=== PATIENT | female | born 1965 | race Caucasian/White ===

== ENCOUNTER → 2016-05-24 | Outpatient (CLI) | payer OTHER ==
[~2016-05-24] MED LIST: ATV/1 PO; CEPH500C PO; CHOL1000 PO; CHOL100010 PO; DOCU-94 PO; FLUO40CA8 PO; GABA-112 PO; GABA1CAP PO; LEVO112T2 PO; LEVO125T4 PO; LEVO125T72 PO; LEVO137T3 PO; LEVO150T9 PO; LINA1CAP2 PO; MIRA1TAB3 PO; NF656 TD; OXYC-57 PO; OXYC1TAB3 PO; PANT40TA PO; SENN1TAB77 PO; SYN125 PO; VEGETABLE LAXATIVE PO; lunesta PO
== END | disposition home or self-care (01) ==
LOC: C.LABBFT 16:32
PROVIDERS: ATTEND Internal Medicine
DX: R35.0 Frequency of micturition (principal); E03.9 Hypothyroidism, unspecified

== ENCOUNTER 2016-06-02 11:23 | Emergency (ER) | payer OTHER ==
[~2016-06-02] VITALS: Ht 162.6 cm; Wt 60.0 kg
[~2016-06-02 11:23] MED LIST changes: -ATV/1 PO; -CEPH500C PO; -CHOL1000 PO; -CHOL100010 PO; -DOCU-94 PO; -FLUO40CA8 PO; -GABA-112 PO; -GABA1CAP PO; -LEVO112T2 PO; -LEVO125T72 PO; -LEVO137T3 PO; -LEVO150T9 PO; -LINA1CAP2 PO; -MIRA1TAB3 PO; -NF656 TD; -OXYC-57 PO; -PANT40TA PO; -SENN1TAB77 PO; -SYN125 PO; -VEGETABLE LAXATIVE PO; -lunesta PO
[2016-06-02 11:25] VITALS: TEMP 36.6; Ht 162.6 cm; Wt 60.0 kg
[2016-06-02 12:01] LABS: URINE APPEARANCE CLEAR (CLEAR); URINE BILIRUBIN NEG (NEG); URINE COLOR YELLOW; URINE NITRITE NEG (NEG); URINE SPECIFIC GRAVITY 1.021 (1.000-1.030); UROBILINOGEN NEG (NEG); ZZUR CULT IF INDIC CLEAN CATCH NO
[2016-06-02 12:03] LABS: MANUAL MICROSCOPIC REQUIRED? NO; REVIEW REQ? NO
[2016-06-02 13:00] LABS: HEMATOCRIT 36.6 % (37-47); MEAN CELL VOLUME 89.3 fL (80-100); MEAN CORPUSCULAR HEMOGLOBIN 30.2 pg (25-34); MEAN CORPUSCULAR HGB CONC 33.9 g/dl (32-36); MEAN PLATELET VOLUME 10.1 fL (7.4-10.4); PLATELET COUNT 322 K/uL (130-400); WHITE BLOOD COUNT 7.11 K/uL (4.8-10.8)
[2016-06-02] MEDS ORDERED: MoRPHine SULFATE 10 MG/ML CARP/VIAL IV STA ×2 (13:00→15:08)
[2016-06-02] MEDS ORDERED: SODIUM CHLORIDE 0.9% 1000ML 1,000 ML IV STA (13:00)
[2016-06-02] MEDS ORDERED: ONDANSETRON INJ 2 MG/ML 2 ML VIAL IV STA (13:00)
[2016-06-02 13:20] LABS: CALCIUM 9.7 mg/dl (8.5-10.1); CARBON DIOXIDE 27 mmol/L (21-32); CHLORIDE 105 mmol/L (98-107); GLUCOSE 108 mg/dl (70-99); POTASSIUM 3.6 mmol/L (3.5-5.1); SODIUM 140 mmol/L (136-145)
[2016-06-02 13:24] LABS: BASO % 0.7 %; BASO ABS # 0.05 K/uL (0-0.2); COMPLETE YES; EOS % 0.9 %; IG% 0.1 %; LYMPH % 21.6 %; LYMPH ABS # 1.61 K/uL (1.2-3.4); MONO % 6.7 %
[2016-06-02 13:31] LABS: ALKALINE PHOSPHATASE 60 U/L (45-117); ALT/SGPT 22 U/L (12-78); AST/SGOT 18 U/L (15-37); BLOOD UREA NITROGEN 16 mg/dl (7-18); BUN/CREATININE RATIO 17.1 (10-20); CREATININE 0.94 mg/dl (0.60-1.20)
--- NOTE | 2016-06-02 13:57 | DIAGNOSTIC IMAGING REPORT ---
CT SCAN OF THE ABDOMEN AND PELVIS WITHOUT IV CONTRAST CLINICAL HISTORY: Flank pain and hematuria. COMPARISON STUDY: Abdominal radiographs dated 03/03/2010. TECHNIQUE: CT scan of the abdomen and pelvis is performed from the lung bases to the proximal femora. Images are reviewed in the axial, sagittal, and coronal planes. IV contrast was not administered for this examination as per the referring clinician. Automated dose control exposure was utilized. CT DOSE: 348.46 mGy.cm FINDINGS: Lung bases: The heart is normal in size and without pericardial effusion. There are small bilateral fat-containing Bochdalek hernias. The lung bases are otherwise clear. Liver: The unenhanced liver is normal in size, contour, and attenuation. There is no intrahepatic biliary ductal dilatation. Gallbladder: Unremarkable. Spleen: Normal in size and attenuation. Pancreas: Unremarkable. Adrenal glands: Unremarkable. Kidneys: The unenhanced kidneys are normal in size and without hydronephrosis. There are no renal calculi identified. There is no evidence of contour deforming renal mass lesion. Abdominal vasculature: The abdominal aorta is normal in course and caliber. Bowel: The small bowel and colon are normal in course and caliber. The appendix is not identified and reported surgically absent. Peritoneum: There is no intraperitoneal free air or abdominal ascites. Lymphadenopathy: None. Pelvic viscera: The bladder is normal as visualized. The uterus is surgically absent. No adnexal lesion is seen. Skeletal structures: No lytic or blastic lesions are seen. IMPRESSION: There are no acute infectious or inflammatory findings in the abdomen or pelvis. Electronically signed by: Javier Anderson M.D. 06/02/2016 1:55 PM Dictated Date/Time: 06/02/2016 1:52 PM
[2016-06-02 15:24] VITALS: BP 128/71; PULSE 80; O2SAT 99
[2016-06-02] MEDS ORDERED: OXYC-57 PO (15:37)
--- NOTE | 2016-06-03 10:24 | EMERGENCY ROOM VISIT NOTE ---
ED Visit Note First contact with patient: 12:52 Chief Complaint: Left flank pain. History of Present Illness: Ms. Hogue is a 50-year-old white female who ambulates into the ED complaining of left flank pain, bladder pressure and nausea. Historically patient reports she previous lumbar disc disease and had surgery in 2005. She goes on to report that she has been having ongoing hematuria, bilateral flank pain and urinary tract infections for the last 3-4 months. She has been on multiple doses of antibiotics and with reviewing her records she has been prescribed OxyIR 3 times in the last 3 months. She reports she has seen her back specialist and pain management and they do not feel her pain and urinary symptoms are related to her previous back surgery or any new back problems. She does have a upcoming appointment on June 14 with urology. Patient currently reports she had an acute onset of left flank pain that started approximately 12 hours before she arrived in the emergency department. She describes her pain as a sharp sensation. She rates her discomfort 10/10. She reports the pain radiates through the abdomen and into the right lower quadrant. She reports palpation, movement, lying down all increases her discomfort. She has minimal discomfort when she is standing and walking around. She reports she's been using [id number] medications she has used all her narcotics for pain and has had no relief. Associated with her pain she reports she's been having chills, nausea but no vomiting and a sensation of pressure over top of her bladder. She denies sweats, denisa fevers, skin eruptions, skin color changes, recent trauma, upper respiratory tract symptoms, cough, wheezing, shortness of breath, chest pain, palpitations, neck and lumbar back pain, urinary symptoms, hematuria , diarrhea, constipation, bloody stools, black/tarry stools, vaginal bleeding, vaginal discharge, bowel and bladder dysfunction, genital/rectal paresthesias, lower extremity weakness/numbness/tingling. Review of Systems: As noted above in history of present illness. All body systems were reviewed and found to be negative as noted above. Past Medical History: As previously noted, hypothyroidism. Current Medications: Levothyroxine, Prozac. Allergies to Medications: Hydrocodone. Social History: Patient is currently employed; she feels safe in her home environment; she denies tobacco use and admits to alcohol use. Physical Examination: Vital Signs: Date Time Temp Pulse Resp B/P Pulse Ox O2 Delivery O2 Flow Rate FiO2 06/02/16 15:24 80 16 128/71 99 Room Air 06/02/16 14:01 75 18 109/65 98 Room Air 06/02/16 13:31 88 20 124/94 96 Room Air 06/02/16 11:25 36.6 107 18 106/57 100 Room Air GENERAL: 50-year-old female in moderate distress due to pain, nontoxic-appearing , afebrile and hemodynamically stable. NEUROLOGICAL: Awake, alert and oriented to person, place and time. Answering questions appropriately and following commands. Normal gait. Good hand eye coordination. No focal motor sensory deficits. SKIN: Warm, dry and pink. No soft tissue eruptions or trauma noted. HEENT: Atraumatic and normocephalic. PERRL. Sclera white and conjunctiva pink. No drainage from naris. Oral cavity moist and pink. Pharynx is nonerythematous or edematous. Speech normal. No lymphadenopathy. Trachea midline. No jugular venous distention. BACK: No tenderness over the bony cervical, thoracic and lumbar spine. No tenderness throughout the paraspinous muscles and there is no palpable spasm. Positive bilateral CVA tenderness; more pronounced on the left than the right. Negative straight leg raise test. THORAX: Lungs sounds are clear to auscultation and equal bilaterally with symmetrical chest wall. No wheezing, rales or rhonchi. No crepitus, tenderness , subcutaneous air or deformities noted. HEART: Regular rate and rhythm. No gallops, rubs or murmurs are appreciated. ABDOMEN: Flat, soft and nontender. Positive bowel sounds in all quadrants. No guarding, rigidity or organomegaly. EXTREMITIES: Moves all extremities well on command and with purpose. All distal neurovascular statuses are intact and equal bilaterally. ED Course: Patient is assessed as noted above. Laboratory Testing: Test 06/02/16 11:45 06/02/16 12:40 Range/Units Urine Color YELLOW Urine Appearance CLEAR CLEAR Urine pH 5.0 4.5-7.5 Urine Specific [place] 1.021 1.000-1.030 Urine Protein NEG NEG Urine Glucose (UA) NEG NEG Urine Ketones TRACE NEG Urine Occult Blood NEG NEG Urine Nitrite NEG NEG Urine Bilirubin NEG NEG Urine Urobilinogen NEG NEG Urine Leukocyte Esterase NEG NEG Urine WBC (Auto) 1-5 0-5 /hpf Urine RBC (Auto) 0-4 0-4 /hpf Urine Hyaline Casts (Auto) 1-5 0-5 /lpf Urine Epithelial Cells (Auto) 10-20 0-5 /lpf Urine Bacteria (Auto) NEG NEG White Blood Count 7.11 4.8-10.8 K/uL Red Blood Count 4.10 4.2-5.4 M/uL Hemoglobin 12.4 12.0-16.0 g/dL Hematocrit 36.6 37-47 % Mean Corpuscular Volume 89.3 80-100 fL Mean Corpuscular Hemoglobin 30.2 25-34 pg Mean Corpuscular Hemoglobin Concent 33.9 32-36 g/dl Platelet Count 322 130-400 K/uL Mean Platelet Volume 10.1 7.4-10.4 fL Neutrophils (%) (Auto) 70.0 % Lymphocytes (%) (Auto) 21.6 % Monocytes (%) (Auto) 6.7 % Eosinophils (%) (Auto) 0.9 % Basophils (%) (Auto) 0.7 % Neutrophils # (Auto) 5.23 1.4-6.5 K/uL Lymphocytes # (Auto) 1.61 1.2-3.4 K/uL Monocytes # (Auto) 0.50 0.11-0.59 K/uL Eosinophils # (Auto) 0.07 0-0.5 K/uL Basophils # (Auto) 0.05 0-0.2 K/uL RDW Standard Deviation 40.1 36.4-46.3 fL RDW Coefficient of Variation 12.4 11.5-14.5 % Immature Granulocyte % (Auto) 0.1 % Immature Granulocyte # (Auto) 0.01 0.00-0.02 K/uL Nucleated RBC Absolute Count (auto) 0.00 0-0 K/uL Nucleated Red Blood Cells % 0.0 % Sodium Level 140 136-145 mmol/L Potassium Level 3.6 3.5-5.1 mmol/L Chloride Level 105 98-107 mmol/L Carbon Dioxide Level 27 21-32 mmol/L Anion Gap 8.0 3-11 mmol/L Blood Urea Nitrogen 16 7-18 mg/dl Creatinine 0.94 0.60-1.20 mg/dl Est Creatinine Clear Calc Drug Dose 60.5 ml/min Estimated GFR () 80.8 Estimated GFR (Non- 69.8 BUN/Creatinine Ratio 17.1 10-20 Random Glucose 108 70-99 mg/dl Calcium Level 9.7 8.5-10.1 mg/dl Total Bilirubin 0.3 0.2-1 mg/dl Direct Bilirubin < 0.1 0-0.2 mg/dl Aspartate Amino Transf (AST/SGOT) 18 15-37 U/L Alanine Aminotransferase (ALT/SGPT) 22 12-78 U/L Alkaline Phosphatase 60 45-117 U/L Total Protein 7.5 6.4-8.2 gm/dl Albumin 4.2 3.4-5.0 gm/dl Lipase 158 73-393 U/L Noncontrast Abdominal/Pelvic CT: Was read by myself and the radiologist showing no acute inflammatory or infectious changes in the abdomen and pelvis, kidneys are of normal size and without hydronephrosis, no renal calculi identified and no evidence of contour deforming renal masses. No skeletal lytic or blastic lesions seen. Patient was hydrated with normal saline, she received a total of 16 mg of morphine IV for pain and 4 mg of Zofran. Patient is assessed multiple times during her stay in the emergency department. Patient's case was reviewed with Dr. Arellano; we agreed on diagnostic approach, treatment, disposition and plan. Patient's case was consulted with case management and Dr. Jasso, hospitalist for possible observation stay for irretractable pain. Dr. Jasso did not think that an observation stay would be beneficial at this time. Patient was educated about tonight's findings and instructed on her treatment plan; she verbalizes understanding and agreement with this plan. Clinical Impression: Left flank pain. Decision-Making: Initially my differential diagnosis I considered musculoskeletal disorder, kidney stone, pyelonephritis, splenomegaly, bowel obstruction, diverticulitis and other causes. Disposition: Patient discharged home in stable condition accompanied by friends ; prior to departure she was reassessed and subjectively reported she was feeling slightly better and rated her discomfort 5/10. Plan: Patient was given a short prescription of Percocet; for 3 days, and encouraged to alternate it with ibuprofen and acetaminophen as needed. Patient was encouraged to follow-up with her family physician tomorrow morning and request follow-up care and treatment. Patient was encouraged to keep her upcoming urology appointment. Patient was encouraged return ED for worsening/uncontrolled pain, fevers, genital/rectal numbness/tingling, lower extremity weakness/numbness/tingling, bowel and bladder dysfunction or any new/concerning symptoms
[2016-06-23] MEDS ORDERED: LEVO150T9 PO (13:31)
[2016-06-23] MEDS ORDERED: VEGETABLE LAXATIVE PO (13:31)
[2016-07-20] MEDS ORDERED: LEVO137T3 PO (05:57)
[2016-07-20] MEDS ORDERED: FLUO40CA8 PO (08:26)
[2016-07-20] MEDS ORDERED: CHOL100010 PO (13:31)
[2017-01-25] MEDS ORDERED: ATV/1 PO (11:56)
[2017-01-25] MEDS ORDERED: MIRA1TAB3 PO (11:56)
[2017-01-25] MEDS ORDERED: OXYC-57 PO (11:56)
== END 2016-06-02 16:07 | disposition home or self-care (01) ==
LOC: C.EDB 11:24
DX: R10.30 Lower abdominal pain, unspecified (principal); E03.9 Hypothyroidism, unspecified; Z79.899 Other long term (current) drug therapy; Z88.5 Allergy status to narcotic agent

== ENCOUNTER 2016-06-05 17:08 | Emergency (ER) | payer OTHER ==
[~2016-06-05] VITALS: Ht 162.6 cm; Wt 61.0 kg
[~2016-06-05 17:08] MED LIST changes: +OXYC-57 PO; -OXYC1TAB3 PO
[2016-06-05 17:16] VITALS: TEMP 36.7; Ht 162.6 cm; Wt 61.0 kg
[2016-06-05] MEDS ORDERED: MoRPHine SULFATE 10 MG/ML CARP/VIAL IM STA (17:34)
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
[2016-06-05] MEDS ORDERED: LEVO125T72 PO (17:56)
[2016-06-05 18:13] VITALS: BP 121/77; PULSE 82; O2SAT 100
[2016-06-23] MEDS ORDERED: LEVO150T9 PO (13:31)
[2016-06-23] MEDS ORDERED: VEGETABLE LAXATIVE PO (13:31)
[2016-07-20] MEDS ORDERED: LEVO137T3 PO (05:57)
[2016-07-20] MEDS ORDERED: FLUO40CA8 PO (08:26)
[2016-07-20] MEDS ORDERED: CHOL100010 PO (13:31)
[2017-01-25] MEDS ORDERED: MIRA1TAB3 PO (11:56)
[2017-01-25] MEDS ORDERED: ATV/1 PO (11:56)
[2017-01-25] MEDS ORDERED: OXYC-57 PO (11:56)
== END 2016-06-05 18:07 | disposition home or self-care (01) ==
LOC: C.EDB 17:08 → C.EDD 18:07
DX: T22.211A Burn of second degree of right forearm, initial encounter (principal); X10.2XXA Contact with fats and cooking oils, initial encounter; Y93.G3 Activity, cooking and baking

== ENCOUNTER 2016-07-04 05:25 | Observation (INO) | payer OTHER ==
[2016-06-22 12:12] LABS: BASO % 1.7 %; BASO ABS # 0.08 K/uL (0-0.2); COMPLETE YES; EOS % 3.2 %; HEMATOCRIT 36.1 % (37-47); IG% 0.2 %; LYMPH ABS # 1.73 K/uL (1.2-3.4); MEAN CELL VOLUME 91.6 fL (80-100); MEAN CORPUSCULAR HEMOGLOBIN 30.2 pg (25-34); MEAN PLATELET VOLUME 10.2 fL (7.4-10.4); MONO % 7.7 %; NEUT % 50.2 %; PLATELET COUNT 317 K/uL (130-400); RED BLOOD COUNT 3.94 M/uL (4.2-5.4); WHITE BLOOD COUNT 4.68 K/uL (4.8-10.8)
[2016-06-22 12:20] LABS: PROTHROMBIN TIME (PATIENT) 10.9 SECONDS (9.0-12.0)
[2016-06-22 12:25] LABS: BLOOD UREA NITROGEN 13 mg/dl (7-18); CALCIUM 8.9 mg/dl (8.5-10.1); CARBON DIOXIDE 30 mmol/L (21-32); CHLORIDE 105 mmol/L (98-107); GLUCOSE 84 mg/dl (70-99); SODIUM 143 mmol/L (136-145)
[2016-06-22 12:27] LABS: URINE APPEARANCE CLEAR (CLEAR); URINE BILIRUBIN NEG (NEG); URINE COLOR YELLOW; URINE NITRITE NEG (NEG); URINE SPECIFIC GRAVITY 1.017 (1.000-1.030); UROBILINOGEN NEG (NEG)
[2016-06-22 12:30] LABS: MANUAL MICROSCOPIC REQUIRED? NO; REVIEW REQ? NO
[2016-06-23 13:19] VITALS: BMI 24.0
--- NOTE | 2016-07-03 21:52 | HISTORY & PHYSICAL EXAMINATION ---
DATE OF ADMISSION: 07/04/2016 She is being preoped for surgery tomorrow at [place], [place] for anterior cervical discectomy and fusion C5-C6 and C6-C7 with iliac crest bone graft. She has assortment of neck pain, arm pain, weakness, trapezius pain worsening over time, degenerative changes, failure of conservative measures and she has consented for surgery. She has failed conservative other measures including physical therapy and chiropractic medication. PAST MEDICAL HISTORY: Positive for acid reflux. No COPD, diabetes mellitus, carcinoma or hypertension. ALLERGIES: Negative. SOCIAL HISTORY: Nonsmoker. No alcohol use. PAST SURGICAL HISTORY: Tonsils, appendectomy, endometriosis, partial hysterectomy, lumbar spine surgery. ALLERGIES: Negative. MEDICATIONS: Synthroid, Prozac and anti-inflammatory agents. REVIEW OF SYSTEMS: She denies blurred vision, double vision, tinnitus, vertigo. Denies chest pain, palpitations. Asthma or wheezing negative. Nausea or vomiting negative. No urgency, frequency or dysuria. The only complaint is musculoskeletal, neurologic with neck pain, arm pain and weakness. PHYSICAL EXAMINATION: GENERAL: She is alert, oriented and pleasant young lady. VITAL SIGNS: Blood pressure 130/80, pulse of 80, respiratory rate 16. CARDIAC: Normal S1, S2. No S3. LUNGS: Clear to auscultation. ABDOMEN: Soft, nontender. Bowel sounds are intact. She has a Spurling's maneuver with rotation and side bending. She has some weakness of hemodialysis rn strength, weakness of triceps function and decreased triceps reflex. MRI reviewed demonstrating disc osteophyte complex particularly C6-C7, lesser degree at C5-C6. IMPRESSION: Cord compression, cervical spine C6-C7 and C5-C6. DISPOSITION: Includes an anterior cervical discectomy and fusion; C5-C6 and C6-C7 cervical spine with iliac crest bone graft. [facility]
[2016-07-04] VITALS (15 sets, daily range): BP systolic 107–143; BP diastolic 44–84; PULSE 74–95; TEMP 36.4–36.8; O2SAT 98–100; Ht 162.6 cm; Wt 59.0 kg
[~2016-07-04] VITALS: Ht 162.6 cm; Wt 59.0 kg
[~2016-07-04 05:25] MED LIST changes: -LEVO125T4 PO; +LEVO150T9 PO; -OXYC-57 PO; +VEGETABLE LAXATIVE PO
[2016-07-04] MEDS ORDERED: lunesta PO (05:57)
[2016-07-04] MEDS ORDERED: CEFAZOLIN 2000 MG/60 ML D5W 60 ML IV SCH (06:00)
[2016-07-04] MEDS ORDERED: NSS 1000ML IV SCH (06:00)
[2016-07-04] MEDS ORDERED: LACTATED RINGER'S 1000ML 1,000 ML IV SCH (06:00)
[2016-07-04] MEDS ORDERED: PROPOFOL IV EMULSION 10 MG/ML 20 ML VIAL IV ONE (06:32)
[2016-07-04] MEDS ORDERED: FENTANYL CITRATE INJ 50 MCG/1 ML 2 ML VIAL ONE ×2 (06:32→08:17)
[2016-07-04] MEDS ORDERED: ONDANSETRON INJ 2 MG/ML 2 ML VIAL ONE (06:32)
[2016-07-04] MEDS ORDERED: GLYCOPYRROLATE INJ 0.2 MG/ML VIAL ONE (06:32)
[2016-07-04] MEDS ORDERED: LIDOCAINE HCL 2% 2 ML VIAL (20MG/ML) ONE (06:32)
[2016-07-04] MEDS ORDERED: NEOSTIGMINE METHYLSULFATE 5 MG/5 ML SYR ONE (06:32)
[2016-07-04] MEDS ORDERED: LARYING-O-JET KIT (LTA) EXT ONE ×2 (06:32)
[2016-07-04] MEDS ORDERED: MIDAZOLAM HCL 1 MG/ML 2ML VIAL ONE (06:32)
[2016-07-04] MEDS ORDERED: DEXAMETHASONE SOD INJ 4 MG/ML VIAL ONE (06:32)
[2016-07-04] MEDS ORDERED: ROCURONIUM BROMIDE 10 MG/ML 5 ML VIAL ONE (06:32)
[2016-07-04] MEDS ORDERED: GELATIN SPONGE SZ 100 ONE (07:02)
[2016-07-04] MEDS ORDERED: THROMBIN FOR SOLN 20000 UNIT KIT ONE (07:02)
[2016-07-04] MEDS ORDERED: BUPIVACAINE/EPINEPHRINE 0.5% MPF 1:200,000 30 ML VIAL ONE (07:02)
[2016-07-04] MEDS ORDERED: BACITRACIN 50000 UNIT VIAL ONE (07:02)
[2016-07-04] MEDS ORDERED: EpHEDrine SULFATE INJ 50 MG/ML AMP IV PRN (07:15)
[2016-07-04] MEDS ORDERED: ATROPINE SULFATE 0.1 MG/ML 5ML SYR IV PRN (07:15)
[2016-07-04] MEDS ORDERED: ONDANSETRON INJ 2 MG/ML 2 ML VIAL IV PRN ×2 (07:15→10:00)
[2016-07-04] MEDS ORDERED: PHENYLEPHRINE 100MCG/ML 5ML SYR IV PRN (07:15)
--- NOTE | 2016-07-04 07:19 | History & Physical Bridge Note ---
H&P Re-Evaluation Bridge Note: I have examined the patient, reviewed the History & Physical and in the interval since the performance of the History & Physical I have noted the following changes of clinical significance: No changes noted
[2016-07-04] MEDS ORDERED: EpHEDrine SULFATE 50MG/5ML SYR ONE (07:53)
--- NOTE | 2016-07-04 09:35 | DIAGNOSTIC IMAGING REPORT ---
Cervical spine CERVICAL 2 OR 3 VIEWS CLINICAL HISTORY: C5-C7 ACDF fusion TECHNIQUE: Image intensifier COMPARISON STUDY: None FINDINGS: Findings consistent anterior cervical fusion. Images are utilized for intraoperative localization purposes. IMPRESSION: Cervical fusion image intensifier images Electronically signed by: Valentin Huntley M.D. 07/04/2016 9:34 AM Dictated Date/Time: 07/04/2016 9:33 AM
--- NOTE | 2016-07-04 09:57 | [facility] Post Operative Brief Note ---
Immediate Operative Summary Operative Date Jul 04, 2016. Pre-Operative Diagnosis Cord compression, cervical spine C6-C7 and C5-C6 Post-Operative Diagnosis Cord compression, cervical spine C6-C7 and C5-C6 Procedure(s) Performed C5-C7 Anterior Cervical Discectomy and Fusion with iliac crest graft Surgeon Dr. Adkins Cable Testers Helper Surgeon(s) MK Grigsby Estimated Blood Loss 15ml Findings cord compression Specimens none per surgeon Complication(s) None Disposition Recovery Room / PACU
[2016-07-04] MEDS ORDERED: DEXAMETHASONE INJ 8 MG in SYRINGE 0 ML IV PRN (10:00)
[2016-07-04] MEDS ORDERED: HYDROmorphone INJ 0.5 MG/0.5 ML SYR IV PRN (10:00)
[2016-07-04] MEDS ORDERED: MAGNESIUM HYDROXIDE SUSP 30 ML UDC PO PRN (10:00)
[2016-07-04] MEDS ORDERED: LORAZEPAM INJ 0.5 MG in SYRINGE 0.75 ML IV PRN (10:00)
[2016-07-04] MEDS ORDERED: RACEPINEPHRINE 2.25% NEBU SOLN 0.5 ML VIAL INH PRN (10:00)
[2016-07-04] MEDS ORDERED: ACETAMINOPHEN IV 100 ML IV PRN (10:00)
[2016-07-04] MEDS ORDERED: NALOXONE HCL 0.4 MG/1 ML VIAL/CARP IV PRN (10:00)
[2016-07-04] MEDS ORDERED: HYDROmorphone INJ 1 MG/ML SYR ONE ×2 (10:06→12:41)
[2016-07-04] MEDS: HYDROmorphone INJ 2 MG/ML SYR/VIAL IV PRN ×4 (10:10→10:45)
[2016-07-04] MEDS ORDERED: IV FLUIDS COMPLETED PRN (10:30)
[2016-07-04] MEDS: SODIUM CHLORIDE 0.9% 1000ML 1,000 ML IV SCH ×2 (11:30→22:20)
--- NOTE | 2016-07-04 12:38 | Anesthesiology Progress Note ---
Anesthesia Post Op Note Date & Time Jul 04, 2016 at 12:39 Vital Signs Pain Intensity: 6.0 Vital Signs Past 12 Hours Date Time Temp Pulse Resp B/P Pulse Ox O2 Delivery O2 Flow Rate FiO2 07/04/16 12:00 36.6 81 14 111/61 99 Humidified Oxygen 2.0 07/04/16 11:09 36.8 86 18 112/62 99 Nasal Cannula 2 07/04/16 11:04 76 22 07/04/16 11:04 87 22 98 07/04/16 11:03 116/51 07/04/16 10:59 86 18 99 07/04/16 10:59 85 18 07/04/16 10:58 120/67 07/04/16 10:54 82 19 99 07/04/16 10:54 82 19 07/04/16 10:53 116/63 07/04/16 10:49 85 16 99 07/04/16 10:49 84 16 07/04/16 10:48 117/70 07/04/16 10:44 79 17 07/04/16 10:44 79 17 99 07/04/16 10:43 118/64 07/04/16 10:39 80 19 98 07/04/16 10:39 81 19 07/04/16 10:38 125/66 07/04/16 10:35 79 19 98 07/04/16 10:35 79 19 07/04/16 10:33 131/67 07/04/16 10:30 80 16 07/04/16 10:30 80 16 98 07/04/16 10:28 128/68 07/04/16 10:25 80 19 99 07/04/16 10:25 80 19 07/04/16 10:23 126/69 07/04/16 10:20 81 20 99 07/04/16 10:20 81 20 07/04/16 10:19 85 13 07/04/16 10:19 85 13 99 07/04/16 10:18 124/70 07/04/16 10:14 80 14 98 07/04/16 10:14 80 14 07/04/16 10:13 128/70 07/04/16 10:09 84 13 07/04/16 10:09 84 13 135/45 100 07/04/16 10:04 85 18 100 07/04/16 10:04 86 18 07/04/16 10:03 133/65 07/04/16 09:59 90 23 100 07/04/16 09:59 89 23 07/04/16 09:58 138/76 07/04/16 09:54 95 18 07/04/16 09:54 36.1 105 16 93/58 99 Mask 10 07/04/16 09:54 95 18 100 07/04/16 06:01 36.7 77 18 107/44 99 Room Air Notes Mental Status: alert / awake / arousable, participated in evaluation Pt Amnestic to Procedure: Yes Nausea / Vomiting: adequately controlled Pain: adequately controlled Airway Patency, RR, SpO2: stable & adequate BP & HR: stable & adequate Hydration State: stable & adequate Anesthetic Complications: no major complications apparent
[2016-07-04] MEDS: CEFAZOLIN IV 1,000 MG in DEXTROSE 5% 50ML 50 ML IV SCH ×2 (16:10→23:24)
[2016-07-04] MEDS: DEXAMETHASONE INJ 6 MG in SYRINGE 0 ML IV SCH ×2 (16:10→23:24)
--- NOTE | 2016-07-04 18:08 | OPERATIVE REPORT ---
DATE OF OPERATION: 07/04/2016 PREOPERATIVE DIAGNOSES: Cervical spondylosis and nerve root entrapment, cord compression C5-C6, C6-C7 cervical. POSTOPERATIVE DIAGNOSES: Same. PROCEDURE: 1. Anterior cervical discectomy and fusion C5-C6 and C6-C7. 2. Left anterior iliac crest structural autograft. SURGEON: Bry Adkins DO VP TALENT MANAGEMENT: Yemi Benito PA-C COMPLICATIONS: Zero. BLOOD LOSS: 15 mL. DESCRIPTION OF PROCEDURE: The patient was taken to the main operating room, room 3, placed up on the surgical frame, traction placed on the cervical spine, Kennedy catheter administered, antibiotics administered. She was prepped and draped sterile for anterior approach. We prepped crest and cervical spine. We made a transverse skin incision over the C6 vertebral body dissecting the soft tissue in the same plane. This is a classic Chun-Live approach. We did a formal discectomy at C5-C6 and C6-C7. The cervical spine went back through the posterior longitudinal ligament, we were left to right to the uncovertebral joints. We did a nice dissection and every visible aspect of the disc was removed, foraminotomies opened as well. We irrigated thoroughly. We went to the iliac crest. I was able to get a skin incision, fascial incision, harvested 2 structural autograft. These were placed into the discectomy site at C5-C6. They were roughly 6-7 mm in anterior height, approximately 14 mm in length approximately 13 mm across. The fit was anatomic. We then took a small plate, it was 26 mm in length by the [place]. This was placed on the anterior structures, anterior aspect. Six screws were used to transfix this in anatomic position, presybeterian of lordosis. We irrigated and closed both wounds, sterile dressings applied, the patient returned to PACU stable. There were no apparent complications. Sponge and needle count correct. Implants used were by the [place]. I attest to the content of the Intraoperative Record and any orders documented therein. Any exceptions are noted below. RHINA
[2016-07-04] MEDS ORDERED: NURSING VERBAL MED ORDER ONE (18:30)
[2016-07-04] MEDS ORDERED: METOCLOPRAMIDE HCL 10 MG TAB PO PRN (19:00)
[2016-07-04] MEDS: HYDROmorphone INJ 1 MG/ML SYR IV PRN (20:33)
[2016-07-04] MEDS: DOCUSATE SODIUM 100 MG CAP PO SCH (20:34)
[2016-07-05] VITALS (11 sets, daily range): BP systolic 107–135; BP diastolic 66–79; PULSE 76–91; TEMP 36.7–36.9; O2SAT 97–100
[2016-07-05] MEDS: HYDROmorphone INJ 1 MG/ML SYR IV PRN ×2 (00:58→06:31)
[2016-07-05] MEDS ORDERED: LEVOTHYROXINE 137 MCG TAB PO SCH (06:00)
--- NOTE | 2016-07-05 07:23 | Discharge Instructions ---
Discharge Instructions Admission Reason for Admission: Cervical Disc Displacement Discharge Discharge Diagnosis / Problem: neck surgery Discharge Goals Goal(s): Improve function Activity Recommendations Activity Limitations: as noted below Lifting Limitations: no more than 5 pounds Exercise/Sports Limitations: until after follow-up appointment May Resume Sexual Activity: after follow-up appointment Shower/Bathe: keep incision dry Driving or Machine Use: . Instructions / Follow-Up Instructions / Follow-Up MEDICATIONS: Please take your prescriptions as instructed at your pre-op appointment. SPECIAL CARE: The following information is intended to answer some of the common questions and concerns regarding your surgery. Each patient is an individual and receives individual counselling throughout the course of treatment, from diagnosis to surgery all the way through recovery. What follows is not an exhaustive list, but should be a useful guide to some of the common questions and concerns patients have regarding their surgeries. These are not provided to keep you from calling us; rather, they give you something accurate and concrete to reference as you recover from your procedure. If you need us, we are available to you. As always, if you are not sure about something, call us at [phone]. MEDICAL EMERGENCIES: For these conditions, call 911 or go to your local hospital-based Emergency Department - not [facility] or equivalent. * Paralysis * Severe chest pain or difficulty breathing * Swelling or redness of either leg Spine procedures can be rather complex and though complications are rare, they do occur. In such cases, effective advice regarding emergency situations cannot always be addressed over the telephone. You may be referred to the emergency department for more effective management of your problem. Activity Limitations: It is important to give your body time to heal, so please limit your activities : * In general, don't do anything that moves your spine too much. You should avoid contact sports, twisting or heavy lifting while you recover. * 5-10 pounds is all you should attempt to lift. * You should not plan on driving for approximately 3 weeks and you should avoid traveling more than 30-45 minutes at a time. Longer trips should be broken down with walking breaks spaced appropriately. * Physical therapy is not usually required. * Walking and good posture practices will help you recover and regain your function. * Avoid straining or sudden changes in position. * In general, the goal is to take it easy and recover. Don't cause any new problems. Just relax. Showers: * Do not take a bath, use a Jacuzzi or hot tub or otherwise submerge your incision. * It is usually safe to take a shower 4-5 days after your surgery. * Your incision does not require any special creams or ointments. * Simply clean it with soap and water, dry and re-dress with a clean bandage afterwards. Incision: * Keep incision clean, dry and protected until your first follow-up appointment. * Some amount of drainage and redness is normal. Any drainage should be fairly clear and not have a foul odor. * If you feel anything is wrong or you have excessive drainage, please call us. * Your stitches and akilah will be removed 10-14 days after your surgery. At the time of your first post-op visit. * Neck surgeries are typically closed with a suture underneath the skin. The steri-strips over the incision should be maintained until we see you in the office. Bracing: * You may be provided with a back or neck brace to encourage good posture and prevent injury. It will remind you not to do too much as you heal and will alert others to the fact that you have had a surgery. * Back braces may be removed for showers and when you are resting at home. They must be worn when you are walking around for any period of time or for travel. * For neck surgery, you will likely be provided with two cervical collars. The soft collar ([place] or foam rubber) is worn most commonly throughout the day and while sleeping. The plastic collar (provided at the hospital) is for showering/bathing. * Except while eating, collars should remain in place. More specifically, bracing is provided for a purpose and should be worn. * Please obtain your brace or collars prior to your operation and bring them to the hospital with you on the day of surgery. * You should also bring your collars to your post-op appointment with Dr. Adkins. You should always take good care of your body and practice healthy habits, especially following surgery. You should: * Follow your doctor's treatment plan * Sit and stand properly with good posture (ears over shoulders, shoulders over hips) Don't slouch * Learn to lift correctly * Exercise regularly (low-impact aerobic exercise is especially good, but check with your doctor first) * Generally, be up and walking for 5-10 minutes at a time at least 3-4 times per day from the day you get home * Increasing walking to tolerance until you can walk for 20-30 minutes at a time * Attain and maintain a healthy body weight * Eat healthy foods ( a well-balanced, low-fat diet rich in fruits and vegetables) and get enough calcium * Avoid excessive use of alcohol When to call our office - If you notice any of the following: * Increased pain not relieve by pain medicine * Fevers greater then 100 degrees F, chills or flu symptoms * Increased redness around incision * Drainage from the incision that is not clear * Any foul smelling drainage * Swelling or fluid collection beneath the skin Miscellaneous: * In the hospital, you may be given a walker or cane for support while walking. These are temporary needs and are intended to prevent injuries due to falls. You may discontinue them when you feel strong and steady enough on your feet. * Sleep in a comfortable position. We find that many patients find a lounge chair or recliner with several pillows to be beneficial in the early post-operative period. * The support stockings should be used for 7-10 days and may be discontinued when you are back to walking more and conducting usual household activities. No problem is insignificant. We are here to help you and get you well. Contact us at [phone]. Definitions: Foraminotomy: If part of the disc or a bone spur (osteophyte) is pressing on a nerve as it leaves the vertebra (through an exit called the foramen), a foraminotomy may be done. Otomy means "to make an opening." A foraminotomy is making the opening of the foramen larger, so the nerve can exit without being compressed. Laminotomy: Similar to the foraminotomy, a laminotomy makes a larger opening, this time in your bony plate protecting your spinal canal and spinal cord (the lamina). The lamina may be pressing on your nerve, so the surgeon may make more room for the nerves using a laminotomy. Laminectomy: Sometimes, a laminotomy is not sufficient. The surgeon may need to remove all or part of the lamina. This procedure is called a laminectomy. This can often be done at many levels without any harmful effects. Current Hospital Diet Patient's current hospital diet: Clear Liquid Diet; advance as tolerated Discharge Diet Recommended Diet: Clear Liquid Diet Fluid Restriction: None Procedures Procedures Performed: C5-C7 Anterior Cervical Discectomy and Fusion with iliac crest graft Pending Studies Studies pending at discharge: no Medical Emergencies . Who to Call and When: Medical Emergencies: If at any time you feel your situation is an emergency, please call 911 immediately. . Non-Emergent Contact Non-Emergency issues call your: Surgeon Call Non-Emergent contact if: your pain is concerning you, wound has increased pain, you have any medication questions . "Provider Documentation" section prepared by Bry Adkins. VTE Core Measure Inpt VTE Proph given/why not?: Treatment not indicated
[2016-07-05] MEDS: DEXAMETHASONE INJ 6 MG in SYRINGE 0 ML IV SCH (08:56)
[2016-07-05] MEDS: CEFAZOLIN IV 1,000 MG in DEXTROSE 5% 50ML 50 ML IV SCH (08:56)
[2016-07-05] MEDS: DOCUSATE SODIUM 100 MG CAP PO SCH (08:56)
[2016-07-05] MEDS: HYDROCODONE/ACETAMOPHEN 5/325MG TAB PO PRN ×2 (08:57→13:56)
[2016-07-05] MEDS ORDERED: FLUOXETINE HCL 20 MG CAP PO SCH (09:00)
--- NOTE | 2016-07-05 09:42 | DISCHARGE SUMMARY ---
DATE OF DISCHARGE: 07/05/2016 SUBJECTIVE: Minimal complaints of pain. Alert, oriented. No chest pain, no paresthesias, alert, oriented. OBJECTIVE: Temperature 36.7. Lab work not indicated. ASSESSMENT: Status post anterior cervical discectomy and fusion cervical spine. DISPOSITION: Includes instructions, precautions, education. Dressing changed. Discharged home. Follow up in 10 days. Instructions given in the office. Instructions given in the hospital. She is squared away for discharge and has medication on the chart.
[2016-07-05] MEDS: SODIUM CHLORIDE 0.9% 1000ML 1,000 ML IV SCH (11:13)
[2016-07-06] MEDS ORDERED: BISACODYL 10 MG SUPP PR PRN (06:00)
[2016-07-06] MEDS ORDERED: BISACODYL 5 MG TABEC PO PRN (06:00)
[2016-07-06] MEDS ORDERED: POLYETHYLENE (MIRALAX) 17 GM PACK PO SCH (09:00)
[2016-07-20] MEDS ORDERED: LEVO137T3 PO (05:57)
[2016-07-20] MEDS ORDERED: FLUO40CA8 PO (08:26)
[2016-07-20] MEDS ORDERED: CHOL100010 PO (13:31)
[2017-01-25] MEDS ORDERED: ATV/1 PO (11:56)
[2017-01-25] MEDS ORDERED: OXYC-57 PO (11:56)
[2017-01-25] MEDS ORDERED: MIRA1TAB3 PO (11:56)
== END 2016-07-05 14:18 | disposition home or self-care (01) ==
LOC: ENRESERVDT → ENRESERVTM → C.ACU 05:25 → C.3E 09:58
PROVIDERS: ADMIT Orthopaedic Surgery Orthopaedic Surgery of the Spine; ATTEND Orthopaedic Surgery Orthopaedic Surgery of the Spine
DX: M47.12 Other spondylosis with myelopathy, cervical region (principal); Z79.899 Other long term (current) drug therapy; Z87.891 Personal history of nicotine dependence

== ENCOUNTER 2016-07-20 14:00 | Observation (INO) | payer OTHER ==
[~2016-07-20] VITALS: Ht 162.6 cm; Wt 56.5 kg
[~2016-07-20 14:00] MED LIST changes: -ATV/1 PO; -CEPH500C PO; -CHOL1000 PO; -DOCU-94 PO; -GABA-112 PO; -GABA1CAP PO; -LEVO112T2 PO; -LINA1CAP2 PO; -MIRA1TAB3 PO; -NF656 TD; -OXYC-57 PO; -PANT40TA PO; -SENN1TAB77 PO; -SYN125 PO
[2016-07-20] MEDS ORDERED: SODIUM CHLORIDE 0.9% 1000ML 1,000 ML IV STA (15:37)
[2016-07-20] MEDS ORDERED: ONDANSETRON INJ 2 MG/ML 2 ML VIAL IV STA (15:37)
[2016-07-20] MEDS ORDERED: HYDROmorphone INJ 0.5 MG/0.5 ML SYR IV STA (15:37)
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
[2016-07-20] MEDS ORDERED: MIRA1TAB3 PO (16:19)
[2016-07-20] MEDS ORDERED: PANT40TA PO (16:19)
[2016-07-20] MEDS ORDERED: LINA1CAP2 PO (16:19)
[2016-07-20] MEDS ORDERED: LORAZEPAM 2 MG/ML 1 ML VIAL IV STA (16:44)
--- NOTE | 2016-07-20 18:19 | DIAGNOSTIC IMAGING REPORT ---
MRCP CLINICAL HISTORY: Severe pain. Evaluate for choledocholithiasis. COMPARISON STUDY: CT of the abdomen and pelvis June 02, 2016 and right upper quadrant ultrasound July 20, 2016. TECHNIQUE: Utilizing 1.5 Tori magnet and heavily T2 weighted pulsing sequences, unenhanced images of the abdomen were obtained. FINDINGS: The 3-D MRCP sequence is significantly compromised by motion artifact. No common bile duct calculi are identified although small distal common bile duct likely could be obscured on this examination. The caliber of the common bile duct is at the upper limits of normal, measuring 6 mm. No intrahepatic biliary ductal dilatation is present. No gallstones are identified by MRI. Unenhanced images of liver, spleen, adrenal glands, pancreas and kidneys are normal. There is no pancreatic ductal dilatation. There is no peripancreatic infiltration. The course and caliber of the main pancreatic duct is normal. There is no upper abdominal adenopathy or ascites. IMPRESSION: 1. No choledocholithiasis identified although sensitivity for detection of small calculi is diminished on this study due to motion artifact. 2. Caliber of the common bile duct at the upper limits of normal. No significant biliary ductal dilatation. 3. Normal course and caliber of the main pancreatic duct. Electronically signed by: Vijay Shoemaker M.D. 07/20/2016 6:17 PM Dictated Date/Time: 07/20/2016 6:10 PM
[2016-07-20] MEDS ORDERED: ALUMINUM/MAGNESIUM/SIMETH (MAALOX MAX) 30 ML UDC PO PRN (18:30)
[2016-07-20] MEDS ORDERED: MAGNESIUM HYDROXIDE SUSP 30 ML UDC PO PRN (18:30)
[2016-07-20] MEDS ORDERED: ZOLPIDEM TARTRATE 5 MG TAB PO PRN (18:30)
[2016-07-20] MEDS ORDERED: ONDANSETRON INJ 2 MG/ML 2 ML VIAL IV PRN (18:30)
[2016-07-20] MEDS ORDERED: POLYETHYLENE (MIRALAX) 17 GM PACK PO PRN (18:30)
[2016-07-20] MEDS ORDERED: ACETAMINOPHEN 325 MG TAB PO PRN (18:30)
--- NOTE | 2016-07-20 18:39 | History and Physical ---
History & Physical Date of Service Jul 20, 2016. History & Physical n/v/RUQ pain, abn US, [id number]
[2016-07-20] MEDS ORDERED: IV FLUIDS COMPLETED PRN (18:45)
[2016-07-20] MEDS ORDERED: PANTOprazole INJ 40 MG in SYRINGE 0 ML IV ONE (19:00)
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
[2016-07-20 19:45] VITALS: BP 106/65; PULSE 78; TEMP 37; O2SAT 96; Ht 162.6 cm; Wt 56.5 kg
[2016-07-20] MEDS: SODIUM CHLORIDE 0.9% 1000ML 1,000 ML IV SCH (20:53)
[2016-07-20] MEDS ORDERED: MoRPHine SULFATE 2 MG/ML CARP IV PRN (23:30)
[2016-07-20] MEDS ORDERED: MoRPHine SULFATE 4 MG/ML 1 ML CARP\\VIAL IV PRN (23:30)
[2016-07-20 23:39] VITALS: BP 118/77; PULSE 76; TEMP 36.9; O2SAT 98
[2016-07-20] MEDS ORDERED: CLONIDINE HCL 0.1 MG TAB PO ONE (23:45)
[2016-07-21] MEDS: ACETAMINOPHEN IV 1,000 MG in EMPTY BAG 0 ML IV SCH ×4 (00:08→23:41)
--- NOTE | 2016-07-21 00:51 | HISTORY & PHYSICAL EXAMINATION ---
DATE OF ADMISSION: 07/20/2016 This is a level 3 observation H\T\P, 31 minutes. CHIEF COMPLAINT: Right upper abdominal pain, nausea, vomiting and abnormal ultrasound studies. HISTORY OF PRESENT ILLNESS: The patient is a 50-year-old white female with a significant past medical history of acid reflux and recent cervical spine surgery 2 weeks ago, coming to the hospital Emergency Department because of the above chief complaints. The patient reports she has been having right upper quadrant abdominal pain for 3-4 days associated with nausea, vomiting, decreased appetite and feeling full on eating small amounts. It is associated with right upper quadrant abdominal dull pain, persistent, it comes and goes. Possibly eating makes it feel worse. This condition has been for a month, but getting worse for the recent 3-4 days. It is associated with nauseation. Denied fever or chills. Denied chest pain, shortness of breath. She did report of underlying constipations for life. Denied diarrhea. Denied rectal bleeding. Denied cough, sputum, shortness of breath or palpitation. Denied lower extremity swelling. Denied facial droop, slurry speeches or local weakness. In the Emergency Room, she confirmed the above information. She had right upper quadrant ultrasound done already; gallbladder, liver and pancreas were normal. There was a biliary duct dilatation with CBD measured at 9 mm. She confirms the above information. She would like to try some clear liquid for now. PAST MEDICAL HISTORY: Like I mentioned above include; hyperglycemia, nausea, vomiting, diarrhea and cervical spine disc disease; recent surgery 2 weeks ago. Other medical conditions include; hypothyroidism, vitamin D deficiency, gastroparesis, constipation and anxiety. PAST SURGICAL HISTORY: Includes; hysterectomy, lumbar fusion, tonsillectomy, appendectomy and cervical spine procedure. FAMILY HISTORY: Includes cancer and diabetes. SOCIAL HISTORY: History of tobacco abuse, quit several years ago. Denied alcohol abuse disorder, denied illicit drug abuse. ALLERGIES: TO HYDROCODONE. MEDICATIONS: Currently taking include; levothyroxine 137 mcg p.o. daily, vitamin D 1000 units one tab p.o. daily and Prozac 40 mg p.o. q.a.m. REVIEW OF SYSTEMS: Please see HPI, otherwise 14-point organ system review is negative. PHYSICAL EXAMINATION: VITAL SIGNS: Temperature is 37, pulse 94, respiratory rate 18, blood pressure 112/78, pulse ox 98% on room air. GENERAL: The patient is a white female, awake, alert and orientated, in mild distress, looks very thin. EYES: Pupils equal, round and responds to light. EARS: Normal. NOSE: Normal. NECK: Supple. C-collar in place. HEART: Regular rhythm. S1, S2. LUNGS: Decreased breathing sounds. There is no wheezing, rhonchi or crackles. ABDOMEN: Soft, normal bowel sounds, right upper quadrant deeply mild tender BILATERAL LOWER EXTREMITIES: No clubbing, no cyanosis. Cap refill was normal. No edema. Calf was nontender. NEUROLOGIC: Cranial nerves II-XII was intact. There were no local deficits. SKIN: Normal color. No jaundice. LABORATORY STUDIES: WBC 7.1, hemoglobin 12, platelets 332. PT/INR was 10/1. Sodium 139, potassium 3.6, BUN 13, creatinine 0.8. Liver function test was within normal limits. History of positive WHITNEY screening. Right upper quadrant ultrasound was done which shows normal gallbladder, pancreas, liver and CBD dilatation at 9 mm. MRCP was done today already which shows no cholelithiasis, bile duct is in upper limit of normal. No significant biliary duct dilatation. ASSESSMENT AND PLAN: A 50-year-old white female, with the problems below: 1. Right upper quadrant pain with nauseation, decreased appetite and early fullness. 2. Recent cervical spine procedures and current on collar support. 3. Dyslipidemia. 4. Hypothyroidism. 5. Vitamin D deficiency. 6. Gastroparesis. 7. Anxiety. For the right upper quadrant abdominal pain, etiology is unknown. Differential diagnoses include gastritis, peptic ulcerative disease and biliary system dyskinesia. ERCP is not remarkable. GI is on the case already. We will give IV fluids, Protonix, clear liquid okay for now and n.p.o. from midnight. May need ERCP or maybe HIDA scan. We will continue other home medications. GI prophylaxis is ordered. DVT prophylaxis is ordered. Discussed with patient about the care plan. The patient is full code. MTDD
[2016-07-21] MEDS: SODIUM CHLORIDE 0.9% 1000ML 1,000 ML IV SCH ×4 (01:58→23:41)
[2016-07-21 06:56] LABS: BASO % 2.4 %; BASO ABS # 0.11 K/uL (0-0.2); COMPLETE YES; EOS % 6.5 %; HEMATOCRIT 31.8 % (37-47); IG% 0.2 %; LYMPH % 37.3 %; LYMPH ABS # 1.71 K/uL (1.2-3.4); MEAN CELL VOLUME 89.6 fL (80-100); MEAN CORPUSCULAR HEMOGLOBIN 30.1 pg (25-34); MEAN CORPUSCULAR HGB CONC 33.6 g/dl (32-36); MEAN PLATELET VOLUME 9.8 fL (7.4-10.4); MONO % 8.7 %; NEUT % 44.9 %; PLATELET COUNT 353 K/uL (130-400); RED BLOOD COUNT 3.55 M/uL (4.2-5.4); WHITE BLOOD COUNT 4.59 K/uL (4.8-10.8)
[2016-07-21 07:08] VITALS: BP 101/65; PULSE 83; TEMP 37; O2SAT 99
[2016-07-21 07:26] LABS: ALKALINE PHOSPHATASE 71 U/L (45-117); ALT/SGPT 20 U/L (12-78); AST/SGOT 12 U/L (15-37); BLOOD UREA NITROGEN 12 mg/dl (7-18); BUN/CREATININE RATIO 13.5 (10-20); CALCIUM 8.3 mg/dl (8.5-10.1); CARBON DIOXIDE 25 mmol/L (21-32); CHLORIDE 109 mmol/L (98-107); CREATININE 0.86 mg/dl (0.60-1.20); GLUCOSE 81 mg/dl (70-99); MAGNESIUM 1.9 mg/dl (1.8-2.4); POTASSIUM 4.1 mmol/L (3.5-5.1); SODIUM 143 mmol/L (136-145)
[2016-07-21] MEDS ORDERED: INFLUENZA ADMINISTRATION CHARGE ONE (08:00)
[2016-07-21] MEDS ORDERED: INFLUENZA VIRUS QUAD VACCINE 0.5 ML SYR IM. ONE (08:00)
[2016-07-21] MEDS: PANTOprazole INJ 40 MG in SYRINGE 0 ML IV SCH (10:45)
[2016-07-21] MEDS ORDERED: MIDAZOLAM HCL 1 MG/ML 2ML VIAL ONE (11:24)
[2016-07-21] MEDS ORDERED: PROPOFOL IV EMULSION 10 MG/ML 20 ML VIAL IV ONE (12:20)
[2016-07-21] MEDS ORDERED: ONDANSETRON INJ 2 MG/ML 2 ML VIAL ONE (12:20)
[2016-07-21] MEDS ORDERED: LIDOCAINE HCL 2% 2 ML VIAL (20MG/ML) ONE (12:20)
--- NOTE | 2016-07-21 13:20 | Anesthesiology Progress Note ---
Anesthesia Post Op Note Date & Time Jul 21, 2016 at 13:19 Vital Signs Pain Intensity: 0 Vital Signs Past 12 Hours Date Time Temp Pulse Resp B/P Pulse Ox O2 Delivery O2 Flow Rate FiO2 07/21/16 13:02 77 18 106/56 95 Room Air 07/21/16 12:47 78 16 103/57 97 Room Air 07/21/16 11:59 36.8 77 20 125/64 99 Room Air 07/21/16 08:11 Room Air 07/21/16 07:08 37.0 83 17 101/65 99 Room Air Notes Mental Status: alert / awake / arousable Nausea / Vomiting: adequately controlled Pain: adequately controlled Airway Patency, RR, SpO2: stable & adequate BP & HR: stable & adequate Hydration State: stable & adequate Anesthetic Complications: no major complications apparent
[2016-07-21] MEDS: MIRABEGRON ER 25 MG TAB PO SCH (13:32)
[2016-07-21] MEDS: LEVOTHYROXINE 137 MCG TAB PO SCH (13:32)
[2016-07-21] MEDS: FLUOXETINE HCL 20 MG CAP PO SCH (13:32)
[2016-07-21] MEDS: SUCRALFATE 1 GM TAB PO SCH ×3 (13:56→21:22)
[2016-07-21 15:12] VITALS: BP 104/62; PULSE 84; TEMP 36.9; O2SAT 97
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
[2016-07-21 22:56] VITALS: BP 120/71; PULSE 80; TEMP 37; O2SAT 98
--- NOTE | 2016-07-22 00:45 | GI REPORT ---
Procedure Date: 07/21/2016 12:22 PM Procedure: Upper GI endoscopy Indications: Abdominal pain in the right upper quadrant, Nausea Medicines: Monitored Anesthesia Care Complications: No immediate complications. Estimated Blood Loss: Estimated blood loss: none. Procedure: Pre-Anesthesia Assessment: - Prior to the procedure, a History and Physical was performed, and patient medications and allergies were reviewed. The patient's tolerance of previous anesthesia was also reviewed. The risks and benefits of the procedure and the sedation options and risks were discussed with the patient. All questions were answered, and informed consent was obtained. Prior Anticoagulants: The patient has taken no previous anticoagulant or antiplatelet agents. ASA Grade Assessment: II - A patient with mild systemic disease. After reviewing the risks and benefits, the patient was deemed in satisfactory condition to undergo the procedure. After obtaining informed consent, the endoscope was passed under direct vision. Throughout the procedure, the patient's blood pressure, pulse, and oxygen saturations were monitored continuously. The scope was introduced through the mouth, and advanced to the second part of duodenum. The upper GI endoscopy was accomplished without difficulty. The patient tolerated the procedure well. Findings: The esophagus was normal. A small hiatus hernia was present. One non-bleeding cratered gastric ulcer with no stigmata of bleeding was found in the gastric antrum. The lesion was 8 mm in largest dimension. Biopsies were taken with a cold forceps for Helicobacter pylori testing. The examined duodenum was normal. Impression: - Normal esophagus. - Small hiatus hernia. - Non-bleeding gastric ulcer with no stigmata of bleeding. Biopsied. - Normal examined duodenum. Recommendation: - [facility] patient to [facility] care. - Advance diet as tolerated. - Continue present medications. - Await pathology results. - Return to GI office in 6 weeks. Randy Alas DO 07/21/2016 12:40:32 PM This report has been signed electronically. Note Initiated On: 07/21/2016 12:22 PM I attest to the content of the Intraoperative Record and orders documented therein, exceptions below
[2016-07-22 03:09] VITALS: BP 129/80; PULSE 71; TEMP 36.7; O2SAT 98
[2016-07-22] MEDS: SODIUM CHLORIDE 0.9% 1000ML 1,000 ML IV SCH ×2 (05:30→12:00)
[2016-07-22] MEDS: ACETAMINOPHEN IV 1,000 MG in EMPTY BAG 0 ML IV SCH (07:25)
[2016-07-22] MEDS: MIRABEGRON ER 25 MG TAB PO SCH (07:26)
[2016-07-22] MEDS: SUCRALFATE 1 GM TAB PO SCH ×2 (07:26→13:07)
[2016-07-22] MEDS: FLUOXETINE HCL 20 MG CAP PO SCH (07:27)
[2016-07-22] MEDS: LEVOTHYROXINE 137 MCG TAB PO SCH (07:27)
[2016-07-22 07:49] VITALS: BP 123/60; PULSE 71; TEMP 37; O2SAT 98
[2016-07-22 08:56] LABS: HEMATOCRIT 32.8 % (37-47)
[2016-07-22] MEDS ORDERED: LINZESS~ORDER AWAITING ACTION SCH (10:30)
--- NOTE | 2016-07-22 10:31 | Discharge Instructions ---
Discharge Instructions Admission Reason for Admission: N/V/Ruq Pain, Abn Us Discharge Discharge Diagnosis / Problem: gastric ulcer Discharge Goals Goal(s): Decrease discomfort, Improve disease control Activity Recommendations Activity Limitations: resume your previous activity . Current Hospital Diet Patient's current hospital diet: Clear Liquid Diet Discharge Diet Recommended Diet: Regular Diet Procedures Procedures Performed: EGD Pending Studies Studies pending at discharge: yes List of pending studies: Biopsies Medical Emergencies . Who to Call and When: Medical Emergencies: If at any time you feel your situation is an emergency, please call 911 immediately. . Non-Emergent Contact Non-Emergency issues call your: Primary Care Provider, [employer] . . "Provider Documentation" section prepared by Georgie Lance. VTE Core Measure Inpt VTE Proph given/why not?: SCD's
--- NOTE | 2016-07-22 10:33 | Discharge Summary ---
Discharge Summary Date of Service Jul 22, 2016. Discharge Summary Admission Date: Jul 20, 2016 at 18:27 Discharge Date: Jul 22, 2016 Discharge Disposition: Home Principal Diagnosis: gastric ulcer Immunizations: Have You Had Influenza Vaccine: No History of Tetanus Vaccine?: No History of Pneumococcal: No History of Hepatitis B Vaccine: No Procedures: EGD 07/21/16 Impression: - Normal esophagus. - Small hiatus hernia. - Non-bleeding gastric ulcer with no stigmata of bleeding. Biopsied. - Normal examined duodenum. Recommendation: - Return patient to [facility] for [facility] care. - Advance diet as tolerated. - Continue present medications. - Await pathology results. - Return to GI office in 6 weeks. Medication Reconciliation Continued Medications: Cholecalciferol (Vitamin D) 1,000 Unit Tab 1000 INTER.UNIT PO QAM Fluoxetine Hcl (Prozac) 40 Mg Cap 40 MG PO QAM, CAP Levothyroxine Sodium (Levothyroxine Sodium) 137 Mcg Tab 137 MCG PO DAILY, TAB Linaclotide (Linzess) 290 Mcg Cap 290 MCG PO DAILY TAKE THIS MEDICATION 30 MINUTES BEFORE BREAKFAST Mirabegron (Myrbetriq Er) 50 Mg Tab 50 MG PO DAILY, TAB Pantoprazole (Protonix) 40 Mg Tab 40 MG PO DAILY, TAB TAKE THIS MEDICATION 30 MINUTES BEFORE BREAKFAST Hospital Course The patient is a 50-year-old white female with a significant past medical history of acid reflux and recent cervical spine surgery 2 weeks ago, coming to the hospital Emergency Department because of the above chief complaints. The patient reports she has been having right upper quadrant abdominal pain for 3-4 days associated with nausea, vomiting, decreased appetite and feeling full on eating small amounts. It is associated with right upper quadrant abdominal dull pain, persistent, it comes and goes. Possibly eating makes it feel worse. This condition has been for a month, but getting worse for the recent 3-4 days. It is associated with nauseation. The patient denied fever or chills. Denied chest pain, shortness of breath. She did report of underlying constipations for life ____ Denied diarrhea. Denied rectal bleeding. Denied cough, sputum, shortness of breath or palpitation. Denied lower extremity swelling. Denied facial droop, slurry speeches or local weakness. In the Emergency Room, she confirmed the above information. She had right upper quadrant ultrasound done already; gallbladder, liver and pancreas were normal. There was a biliary duct dilatation with CBD measured at 9 mm. She confirms the above information. Patient was observed overnight and brought to EGD the second day of admission. SHe was found to have a non-bleeding gastric ulcer on EGD with biopsies taken. SHe was started on clear liquid diet and tolerated it well. Advanced diet also tolerated. SHe is ok to be discharged and follow-up with GI for biopsy results. SHe will cont her protonix 40 mg daily. Vital Signs Date Time Temp Pulse Resp B/P Pulse Ox O2 Delivery O2 Flow Rate FiO2 07/22/16 12:50 37.0 71 18 98 Room Air 07/22/16 07:49 123/60 ON day of discharge, she was not complaining of n/v and tolerated a regular diet for lunch. She also reports frequent flatus althought no BM yet. Otherwise, neck is feeling fine. No chest pain, no sob. nad, aox3 eomi, perrl, anicteric s1 s2 no m/r/g ctab no w/r/r abd soft nt/nd +BS no LE edema neck brace in place, neck incision clean, no drainage 1. RUQ/epigastric pain with n/v - 2/2 gastric ulcer - no further n/v - cont protonix 40 mg daily - f/u with GI for biopsy results 2. Hypothyroid - cont levothyroxine 3. IBS - cont linzess 4. Recent neck procedure - maintain brace and f/u outpatient Total Time Spent: Less than 30 minutes This includes examination of the patient, discharge planning, medication reconciliation, and communication with other providers. Discharge Instructions Please refer to the electronic Patient Visit Report (Discharge Instructions) for additional information. Additional Copies To Patricia Shoemaker M.D.
[2016-07-22 12:50] VITALS: BP 123/60; PULSE 71; TEMP 37; O2SAT 98
[2016-07-22] MEDS: PANTOprazole INJ 40 MG in SYRINGE 0 ML IV SCH (13:06)
[2017-01-25] MEDS ORDERED: ATV/1 PO (11:56)
[2017-01-25] MEDS ORDERED: OXYC-57 PO (11:56)
[2017-01-25] MEDS ORDERED: MIRA1TAB3 PO (11:56)
== END 2016-07-22 13:30 | disposition home or self-care (01) ==
LOC: ENRESERVDT → ENRESERVTM → C.EDB 14:03 → C.MSW 18:27
PROVIDERS: ADMIT Hospitalist; ATTEND Internal Medicine
DX: K25.9 Gastric ulcer, unspecified as acute or chronic, without hemorrhage or perforation (principal); K44.9 Diaphragmatic hernia without obstruction or gangrene; K21.9 Gastro-esophageal reflux disease without esophagitis; E03.9 Hypothyroidism, unspecified; K58.9 Irritable bowel syndrome, unspecified; M50.90 Cervical disc disorder, unspecified, unspecified cervical region; E55.9 Vitamin D deficiency, unspecified; K31.84 Gastroparesis; E78.5 Hyperlipidemia, unspecified; Z98.1 Arthrodesis status; Z90.710 Acquired absence of both cervix and uterus; Z88.5 Allergy status to narcotic agent; Z87.891 Personal history of nicotine dependence; Z90.49 Acquired absence of other specified parts of digestive tract; Z83.3 Family history of diabetes mellitus

== ENCOUNTER → 2016-07-20 | Outpatient (CLI) | payer OTHER ==
[~2016-07-20] MED LIST changes: +ATV/1 PO; +CEPH500C PO; +CHOL1000 PO; +CHOL100010 PO; +DOCU-94 PO; +FLUO40CA8 PO; +GABA-112 PO; +GABA1CAP PO; +LEVO112T2 PO; +LEVO137T3 PO; -LEVO150T9 PO; +LINA1CAP2 PO; +MIRA1TAB3 PO; +NF656 TD; +OXYC-57 PO; +PANT40TA PO; +SENN1TAB77 PO; +SYN125 PO; -VEGETABLE LAXATIVE PO; +lunesta PO
--- NOTE | 2016-07-20 12:56 | DIAGNOSTIC IMAGING REPORT ---
BILIARY ULTRASOUND CLINICAL HISTORY: Right upper quadrant abdominal pain. Nausea. COMPARISON STUDY: CT scan dated 06/02/2016 FINDINGS: The pancreas appears sonographically normal. The gallbladder appears sonographically normal. The liver appears sonographically normal. There is no right-sided hydronephrosis. The common bile duct is dilated measuring 9 mm. IMPRESSION: 1. Sonographically normal gallbladder pancreas and liver 2. Unexplained mild dilatation of the common bile duct which measures 9 mm. This finding was not present on the CT scan dated 06/02/2016. Electronically signed by: Oj Harvey M.D. 07/20/2016 12:54 PM Dictated Date/Time: 07/20/2016 12:52 PM
[2016-07-20 14:15] LABS: BASO % 1.4 %; COMPLETE YES; EOS % 3.3 %; HEMATOCRIT 36.7 % (37-47); LYMPH % 34.6 %; LYMPH ABS # 2.54 K/uL (1.2-3.4); MEAN CELL VOLUME 87.4 fL (80-100); MEAN CORPUSCULAR HEMOGLOBIN 29.8 pg (25-34); MEAN CORPUSCULAR HGB CONC 34.1 g/dl (32-36); MONO % 7.8 %; NEUT % 52.9 %; PLATELET COUNT 432 K/uL (130-400); WHITE BLOOD COUNT 7.35 K/uL (4.8-10.8)
[2016-07-20 15:09] LABS: ALT/SGPT 28 U/L (12-78); AMYLASE 64 U/L (25-115); AST/SGOT 15 U/L (15-37); BLOOD UREA NITROGEN 13 mg/dl (7-18); BUN/CREATININE RATIO 15.5 (10-20); CALCIUM 9.5 mg/dl (8.5-10.1); CARBON DIOXIDE 26 mmol/L (21-32); CHLORIDE 102 mmol/L (98-107); CREATININE 0.81 mg/dl (0.60-1.20); GLUCOSE 84 mg/dl (70-99); POTASSIUM 3.6 mmol/L (3.5-5.1); SODIUM 139 mmol/L (136-145)
[2016-07-20 15:12] LABS: ALB/GLOB RATIO 1.1 (0.9-2); ALKALINE PHOSPHATASE 87 U/L (45-117)
== END | disposition home or self-care (01) ==
LOC: C.ULTR 12:14
PROVIDERS: ATTEND Registered Nurse
DX: R10.811 Right upper quadrant abdominal tenderness (principal); R11.0 Nausea; K83.8 Other specified diseases of biliary tract

== ENCOUNTER 2016-07-24 18:45 | Emergency (ER) | payer OTHER ==
[~2016-07-24] VITALS: Ht 162.6 cm; Wt 56.4 kg
[~2016-07-24 18:45] MED LIST changes: +LINA1CAP2 PO; +MIRA1TAB3 PO; +PANT40TA PO; -lunesta PO
[2016-07-24 18:55] VITALS: TEMP 36.5; Ht 162.6 cm; Wt 56.4 kg
[2016-07-24] MEDS ORDERED: METOCLOPRAMIDE HCL INJ 5 MG/ML 2 ML VIAL IV STA (19:07)
[2016-07-24] MEDS ORDERED: KETOROLAC TROMETHAMINE 30 MG/ML VIAL IV STA (19:07)
[2016-07-24] MEDS ORDERED: HYDROmorphone INJ 0.5 MG/0.5 ML SYR IV STA ×2 (19:07→21:07)
[2016-07-24] MEDS ORDERED: SODIUM CHLORIDE 0.9% 1000ML 1,000 ML IV STA (19:07)
--- NOTE | 2016-07-24 19:18 | EMERGENCY ROOM VISIT NOTE ---
History Report prepared by Moy: Merna Cheung Under the Supervision of: Dr. Karlos Trejo M.D. First contact with patient: 18:58 Chief Complaint: ABDOMINAL PAIN Stated Complaint: RIGHT SIDE PAIN History of Present Illness The patient is a 50 year old female who presents to the Emergency Room with complaints of constant RUQ abdominal pain for the past 2 days. The patient was in the hospital for abdominal pain earlier this week. She had a scope which revealed an ulcer that was biopsied. She has not received the results of the biopsy yet. She was discharged from the hospital two days ago and told to continue taking her Protonix. The patient states that she started eating solid food again the day that she was discharged. Since that time she has been experiencing constant RUQ abdominal pain. She has had similar pain in the past and states that it typically resolves on its own; however, it is not going away now. The patient rates her pain as a 10/10 in severity. It is worse when sitting still or laying down. She has been taking Tylenol for pain. Source of History: patient Onset: 2 days ago Position: abdomen (RUQ) Symptom Intensity: 10/10 Timing: constant Modifying Factors (Worsening): eating, other (sitting or laying down) Modifying Factors (Relieving): tylenol Review of Systems See HPI for pertinent positives & negatives. A total of 10 systems reviewed and were otherwise negative. Past Medical & Surgical Medical Problems: (1) Anal Fissure (2) Anxiety State Nos (3) Cannabis Abuse-Unspec (4) Cervical spondylosis (5) Depressive Disorder Nec (6) Fibromyalgia (7) Gastroparesis (8) Hypothyroidism Nos (9) Int Hemrrhoid W Comp Nec (10) Irritable Bowel Syndrome Without Diarrhea (11) n/v/RUQ pain, abn US (12) Pelv Perit Endometriosis (13) Radiculopathy, Cervical Region (14) Radiculopathy, Lumbar Region (15) Solitary Cyst Of Breast (16) Tobacco Use Disorder (17) Vitamin D Deficiency, Unspecified Surgical Problems: (1) History of back surgery (2) S/P appendectomy (3) S/P tonsillectomy Family History Cancer Diabetes mellitus Social History Smoking Status: Former Smoker Alcohol Use: none Drug Use: none Housing Status: lives with family Current/Historical Medications Scheduled Cephalexin Monohydrate (Keflex), 1 CAP PO QID Cholecalciferol (Vitamin D), 1,000 INTER.UNIT PO QAM Docusate Sodium (Colace), 1 CAP PO BID Fluoxetine Hcl (Prozac), 40 MG PO QAM Levothyroxine Sodium (Levothyroxine Sodium), 137 MCG PO DAILY Linaclotide (Linzess), 290 MCG PO DAILY Mirabegron (Myrbetriq Er), 50 MG PO DAILY Pantoprazole (Protonix), 40 MG PO DAILY Sennosides (Senokot), 8.6 MG PO HS Scheduled PRN Oxycodone/Acetaminophen 5MG/325MG (Percocet 5MG/325MG), 1-2 TAB PO Q4H PRN for Pain Allergies Coded Allergies: Hydrocodone (Verified Adverse Reaction, Mild, VICODIN CAUSES SEVERE CONSTIPATION, 07/24/16) Physical Exam Vital Signs Date Time Temp Pulse Resp B/P Pulse Ox O2 Delivery O2 Flow Rate FiO2 07/24/16 21:05 83 20 115/63 98 Room Air 07/24/16 19:41 82 07/24/16 18:55 36.5 91 20 124/79 97 Room Air Physical Exam GENERAL: Patient is a healthy-appearing well-nourished 50 year old female. HEAD: Normocephalic atraumatic EYES: Ocular movements intact pupils equal and react to light OROPHARYNX mucous membranes are moist no exudates present no erythema or edema present NECK: Supple no nuchal rigidity CHEST: Good equal expansion LUNGS: Clear and equal to auscultation CARDIAC: Normal S1 and S2 ABDOMEN: Soft, RUQ tenderness, no guarding BACK: No CVA tenderness EXTREMITIES: No pain upon palpation normal muscle strength in all groups no clubbing cyanosis or edema NEURO: Patient is following commands is answering questions appropriately. Alert and oriented x3 Cranial Nerves 2-12 grossly intact Medical Decision & Procedures ER Provider Diagnostic Interpretation: Radiology results as stated below per my review and radiologist interpretation: ABDOMEN 2VIEW W/PA CHEST RTN CLINICAL HISTORY: Pt c/o RUQ abd pain pain. Nausea. COMPARISON STUDY: 03/03/2010 FINDINGS: The soft tissues, psoas shadows, renal outlines and intestinal gas pattern appear normal. There is no evidence for bowel obstruction. There is no evidence for free intraperitoneal air. No abnormal abdominal calcifications are seen. A frontal view of the chest was performed and is unremarkable. IMPRESSION: Normal study. Electronically signed by: Valentin Huntley M.D. 07/24/2016 8:40 PM Dictated Date/Time: 07/24/2016 8:40 PM ABDOMINAL ULTRASOUND, RIGHT UPPER QUADRANT HISTORY: Right upper quadrant ultrasound pain. Nausea.. COMPARISON: 07/20/2016 FINDINGS: Pancreas: The pancreas demonstrates a normal echotexture. Liver: Unremarkable. Gallbladder: Normal with no shadowing gallstones CBD: 7.5 mm slightly diminished from the prior study. Right kidney: No hydronephrosis. IMPRESSION: Essentially normal study. Slight prominence of the extra hepatic common bile duct diminished from the prior study of 07/20/2016. This is considered an improving scenario Electronically signed by: Valentin Huntley M.D. 07/24/2016 8:27 PM Dictated Date/Time: 07/24/2016 8:25 PM Laboratory Results 07/24/16 19:15 Red Blood Count 4.01, Mean Corpuscular Volume 88.3, Mean Corpuscular Hemoglobin 30.7, Mean Corpuscular Hemoglobin Concent 34.7, Mean Platelet Volume 9.8, Neutrophils (%) (Auto) 47.5, Lymphocytes (%) (Auto) 40.0, Monocytes (%) (Auto) 8.2, Eosinophils (%) (Auto) 2.4, Basophils (%) (Auto) 1.7, Neutrophils # (Auto) 2.72, Lymphocytes # (Auto) 2.29, Monocytes # (Auto) 0.47, Eosinophils # (Auto) 0.14, Basophils # (Auto) 0.10 07/24/16 19:15 Test 07/24/16 19:15 White Blood Count 5.73 K/uL (4.8-10.8) Red Blood Count 4.01 M/uL (4.2-5.4) Hemoglobin 12.3 g/dL (12.0-16.0) Hematocrit 35.4 % (37-47) Mean Corpuscular Volume 88.3 fL (80-100) Mean Corpuscular Hemoglobin 30.7 pg (25-34) Mean Corpuscular Hemoglobin Concent 34.7 g/dl (32-36) Platelet Count 388 K/uL (130-400) Mean Platelet Volume 9.8 fL (7.4-10.4) Neutrophils (%) (Auto) 47.5 % Lymphocytes (%) (Auto) 40.0 % Monocytes (%) (Auto) 8.2 % Eosinophils (%) (Auto) 2.4 % Basophils (%) (Auto) 1.7 % Neutrophils # (Auto) 2.72 K/uL (1.4-6.5) Lymphocytes # (Auto) 2.29 K/uL (1.2-3.4) Monocytes # (Auto) 0.47 K/uL (0.11-0.59) Eosinophils # (Auto) 0.14 K/uL (0-0.5) Basophils # (Auto) 0.10 K/uL (0-0.2) RDW Standard Deviation 40.0 fL (36.4-46.3) RDW Coefficient of Variation 12.4 % (11.5-14.5) Immature Granulocyte % (Auto) 0.2 % Immature Granulocyte # (Auto) 0.01 K/uL (0.00-0.02) Urine Color DK YELLOW Urine Appearance CLOUDY (CLEAR) Urine pH 6.0 (4.5-7.5) Urine Specific [place] 1.035 (1.000-1.030) Urine Protein 1+ (NEG) Urine Glucose (UA) NEG (NEG) Urine Ketones TRACE (NEG) Urine Occult Blood 2+ (NEG) Urine Nitrite NEG (NEG) Urine Bilirubin NEG (NEG) Urine Urobilinogen NEG (NEG) Urine Leukocyte Esterase TRACE (NEG) Urine WBC (Auto) 5-10 /hpf (0-5) Urine RBC (Auto) 5-10 /hpf (0-4) Urine Hyaline Casts (Auto) 5-10 /lpf (0-5) Urine Epithelial Cells (Auto) >30 /lpf (0-5) Urine Bacteria (Auto) NEG (NEG) Urine Renal Epithelial Cells /lpf (0-5) Urine Pathogenic Casts 10-20 GRANULAR CASTS /lpf (0) Urine Mucus PRESENT (NONE PRSENT) Urine Yeast (Auto) PRESENT (NONE PRSENT) Anion Gap 9.0 mmol/L (3-11) Est Creatinine Clear Calc Drug Dose 51.7 ml/min Estimated GFR () 66.8 Estimated GFR (Non- 57.7 BUN/Creatinine Ratio 11.6 (10-20) Calcium Level 9.5 mg/dl (8.5-10.1) Total Bilirubin 0.3 mg/dl (0.2-1) Direct Bilirubin < 0.1 mg/dl (0-0.2) Aspartate Amino Transf (AST/SGOT) 18 U/L (15-37) Alanine Aminotransferase (ALT/SGPT) 23 U/L (12-78) Alkaline Phosphatase 97 U/L (45-117) Total Protein 7.7 gm/dl (6.4-8.2) Albumin 4.1 gm/dl (3.4-5.0) Lipase 120 U/L (73-393) Labs reviewed by ED physician. Medications Administered Medications (Trade) Dose Ordered Sig/Edie Route Start Time Stop Time Status Last Admin Dose Admin Sodium Chloride (Nss 1000ml) 1,000 ml @ 999 mls/hr Q1H1M STAT IV 07/24/16 19:07 07/24/16 20:07 DC 07/24/16 19:31 999 MLS/HR Ketorolac Tromethamine (Toradol Inj) 30 mg NOW STAT IV 07/24/16 19:07 07/24/16 19:10 DC 07/24/16 19:32 30 MG Metoclopramide HCl (Reglan Inj) 10 mg NOW STAT IV 07/24/16 19:07 07/24/16 19:10 DC 07/24/16 19:32 10 MG Hydromorphone HCl (Dilaudid Inj) 0.5 mg NOW STAT IV 07/24/16 19:07 07/24/16 19:10 DC 07/24/16 19:31 0.5 MG Ceftriaxone Sodium (Rocephin Inj) 1 gm NOW STAT IV 07/24/16 21:07 07/24/16 21:09 DC 07/24/16 21:16 1 GM Hydromorphone HCl (Dilaudid Inj) 0.5 mg NOW STAT IV 07/24/16 21:07 07/24/16 21:09 DC 07/24/16 21:16 0.5 MG Oxycodone/ Acetaminophen (Percocet 5/ 325MG Home Pack) 1 homepack UD ONCE PO 07/24/16 21:15 07/24/16 21:16 DC 07/24/16 21:17 1 HOMEPACK ED Course 190: Past medical records reviewed. The patient was evaluated in room B6. A complete history and physical examination was performed. 1906: Dilaudid 0.5 mg IV, Reglan 10 mg IV, Toradol 30 mg IV, NSS 1000 ml @ 999 mls/hr IV 2101: I reassessed the patient at this time. She is feeling better and resting comfortably. I discussed the results and treatment plan with the patient. I answered all pertaining questions that she had. She expressed understanding and verbalized agreement. The patient will be discharged home. 2106: Dilaudid 0.5 mg IV, Rocephin 1 gm IV 2114: Percocet 5/325 mg PO 1 homepack Medical Decision Differential diagnosis: Etiologies such as appendicitis, diverticulitis, PUD, biliary pathology, UTI, pancreatitis, obstruction, mesenteric ischemia, aortic pathology, infections, inflammatory bowel disease, renal colic, as well as others were entertained. This is a 50-year-old female who was this recently in the emergency department as well as Hospital abdominal pain. The patient reports that as soon as she started eating the pain returned. She does not have an elevation in her white blood count and her ultrasound is actually improved from the previous one. An IV was established, patient given normal saline bolus, Dilaudid 2, Toradol. Repeat examination revealed improvement the patient's symptoms. Serial abdominal examinations were performed on the patient and in no tended the patient exhibited a surgical abdomen. In addition the patient also has hematuria so I recommended that the patient be started on an antibiotic. Based on previous culture results the patient was placed on Rocephin as well as Keflex. I believe the patient is well enough to be discharged home for follow-up with urology. Patient was in agreement with the treatment plan. Impression Primary Impression: Hematuria Additional Impression: Abdominal pain Scribe Attestation The scribe's documentation has been prepared under my direction and personally reviewed by me in its entirety. I confirm that the note above accurately reflects all work, treatment, procedures, and medical decision making performed by me. Departure Information Dispostion Home / Self-Care Prescriptions Docusate Sodium (COLACE) 100 Mg Cap 1 CAP PO BID for 10 Days, #20 CAP Prov: Karlos Trejo MD 07/24/16 Sennosides (SENOKOT) 8.6 Mg Tab 8.6 MG PO HS for 10 Days, #10 TAB Prov: Karlos Trejo MD 07/24/16 Cephalexin Monohydrate (Keflex) 500 Mg Cap 1 CAP PO QID for 10 Days, #40 CAP Prov: Karlos Trejo MD 07/24/16 Oxycodone/Acetaminophen 5MG/325MG (PERCOCET 5MG/325MG) Tab 1-2 TAB PO Q4H Y for Pain, #14 TAB Prov: Karlos Trejo MD 07/24/16 Referrals Patricia Shoemaker M.D. (PCP) Yosi Jeronimo M.D. Forms Call Back Authorization, HOME CARE DOCUMENTATION FORM, IMPORTANT VISIT INFORMATION Patient Instructions ED Abd Pain Unkn Cause Fem, ED Diet Clear Liquid, ED Hematuria, Hematuria Poss Causes, [facility] Additional Instructions Clear liquid diet next 48 hours Follow up with DR Jeronimo's office You received narcotic or benzodiazepene medication while in the emergency room today. Do not drive, operate heavy machinery, or drink alcohol under the influence of this medication. Take 600 mg Ibuprofen every 6 hours Take Percocet for breakthrough pain Radiographs and CTs will be reread by a radiologist in the morning. Culture results are usually available in approx 48 hours You have been examined and treated today on an emergency basis only. This is not a substitute for, or an effort to provide, complete comprehensive medical care. It is impossible to recognize and treat all injuries or illnesses in a single emergency department visit. It is therefore important that you follow up closely with Dr Shoemaker. Call as soon as possible for an appointment. Thank you for your time and consideration. I look forward to speaking with you again soon. Please don't hesitate to call us if you have any questions. Problem Qualifiers Additional Impression: Abdominal pain Abdominal location: right upper quadrant Qualified Codes: R10.11 - Right upper quadrant pain
[2016-07-24 19:24] LABS: BASO % 1.7 %; COMPLETE YES; EOS % 2.4 %; HEMATOCRIT 35.4 % (37-47); IG% 0.2 %; LYMPH ABS # 2.29 K/uL (1.2-3.4); MEAN CELL VOLUME 88.3 fL (80-100); MEAN CORPUSCULAR HEMOGLOBIN 30.7 pg (25-34); MEAN CORPUSCULAR HGB CONC 34.7 g/dl (32-36); MEAN PLATELET VOLUME 9.8 fL (7.4-10.4); MONO % 8.2 %; NEUT % 47.5 %; PLATELET COUNT 388 K/uL (130-400); RED BLOOD COUNT 4.01 M/uL (4.2-5.4); WHITE BLOOD COUNT 5.73 K/uL (4.8-10.8)
[2016-07-24 19:45] LABS: ALT/SGPT 23 U/L (12-78); BLOOD UREA NITROGEN 13 mg/dl (7-18); BUN/CREATININE RATIO 11.6 (10-20); CALCIUM 9.5 mg/dl (8.5-10.1); CARBON DIOXIDE 27 mmol/L (21-32); CHLORIDE 104 mmol/L (98-107); GLUCOSE 81 mg/dl (70-99); POTASSIUM 3.5 mmol/L (3.5-5.1); SODIUM 140 mmol/L (136-145)
[2016-07-24 19:49] LABS: ALKALINE PHOSPHATASE 97 U/L (45-117); AST/SGOT 18 U/L (15-37)
--- NOTE | 2016-07-24 20:29 | DIAGNOSTIC IMAGING REPORT ---
ABDOMINAL ULTRASOUND, RIGHT UPPER QUADRANT HISTORY: Right upper quadrant ultrasound pain. Nausea.. COMPARISON: 07/20/2016 FINDINGS: Pancreas: The pancreas demonstrates a normal echotexture. Liver: Unremarkable. Gallbladder: Normal with no shadowing gallstones CBD: 7.5 mm slightly diminished from the prior study. Right kidney: No hydronephrosis. IMPRESSION: Essentially normal study. Slight prominence of the extra hepatic common bile duct diminished from the prior study of 07/20/2016. This is considered an improving scenario Electronically signed by: Valentin Huntley M.D. 07/24/2016 8:27 PM Dictated Date/Time: 07/24/2016 8:25 PM
[2016-07-24 20:31] LABS: URINE APPEARANCE CLOUDY (CLEAR); URINE COLOR DK YELLOW; URINE EPITHELIAL CELL AUTO >30 /lpf (0-5); URINE NITRITE NEG (NEG); URINE SPECIFIC GRAVITY 1.035 (1.000-1.030); UROBILINOGEN NEG (NEG)
--- NOTE | 2016-07-24 20:41 | DIAGNOSTIC IMAGING REPORT ---
ABDOMEN 2VIEW W/PA CHEST RTN CLINICAL HISTORY: Pt c/o RUQ abd pain pain. Nausea. COMPARISON STUDY: 03/03/2010 FINDINGS: The soft tissues, psoas shadows, renal outlines and intestinal gas pattern appear normal. There is no evidence for bowel obstruction. There is no evidence for free intraperitoneal air. No abnormal abdominal calcifications are seen. A frontal view of the chest was performed and is unremarkable. IMPRESSION: Normal study. Electronically signed by: Valentin Huntley M.D. 07/24/2016 8:40 PM Dictated Date/Time: 07/24/2016 8:40 PM
[2016-07-24 20:50] LABS: MANUAL MICROSCOPIC REQUIRED? NO; REVIEW REQ? YES; URINE BILIRUBIN NEG (NEG)
[2016-07-24 21:05] VITALS: BP 115/63; PULSE 83; O2SAT 98
[2016-07-24 21:06] LABS: URINE MUCUS PRESENT (NONE PRSENT)
[2016-07-24] MEDS ORDERED: CEFTRIAXONE SOD INJ 1 GM ADDVIAL IV STA (21:07)
[2016-07-24] MEDS ORDERED: DOCU-94 PO (21:10)
[2016-07-24] MEDS ORDERED: CEPH500C PO (21:10)
[2016-07-24] MEDS ORDERED: SENN1TAB77 PO (21:10)
[2016-07-24] MEDS ORDERED: OXYC-57 PO (21:10)
[2016-07-24] MEDS ORDERED: PERCOCET HOME PACK PO ONE (21:15)
[2017-01-25] MEDS ORDERED: ATV/1 PO (11:56)
[2017-01-25] MEDS ORDERED: MIRA1TAB3 PO (11:56)
[2017-01-25] MEDS ORDERED: OXYC-57 PO (11:56)
== END 2016-07-24 21:47 | disposition home or self-care (01) ==
LOC: C.EDB 18:46
DX: R31.9 Hematuria, unspecified (principal); R10.11 Right upper quadrant pain; E03.9 Hypothyroidism, unspecified; Z79.899 Other long term (current) drug therapy

== ENCOUNTER → 2016-07-26 | Outpatient (CLI) | payer OTHER ==
[~2016-07-26] MED LIST changes: +ATV/1 PO; +CEPH500C PO; +CHOL1000 PO; +DOCU-94 PO; +GABA-112 PO; +GABA1CAP PO; +LEVO112T2 PO; +NF656 TD; +OXYC-57 PO; +SENN1TAB77 PO; +SYN125 PO
== END | disposition home or self-care (01) ==
LOC: C.LABSPEC 17:03
PROVIDERS: ATTEND Nurse Practitioner Family
DX: R31.9 Hematuria, unspecified (principal)

== ENCOUNTER → 2016-08-22 | Outpatient (CLI) | payer OTHER ==
[~2016-08-22] MED LIST changes: -DOCU-94 PO; -SENN1TAB77 PO
== END | disposition home or self-care (01) ==
LOC: C.LABBFT 11:33
PROVIDERS: ATTEND Internal Medicine
DX: E03.9 Hypothyroidism, unspecified (principal); E55.9 Vitamin D deficiency, unspecified

== ENCOUNTER 2016-10-03 19:05 | Emergency (ER) | payer OTHER ==
[~2016-10-03] VITALS: Ht 162.6 cm; Wt 54.0 kg
[~2016-10-03 19:05] MED LIST changes: -ATV/1 PO; -CEPH500C PO; -CHOL1000 PO; -GABA-112 PO; -GABA1CAP PO; -LEVO112T2 PO; -NF656 TD; -SYN125 PO
[2016-10-03 19:08] VITALS: TEMP 36.7; Ht 162.6 cm; Wt 54.0 kg
[2016-10-03] MEDS ORDERED: KETOROLAC TROMETHAMINE 30 MG/ML VIAL IV STA (19:35)
[2016-10-03 20:01] LABS: BASO % 0.9 %; BASO ABS # 0.05 K/uL (0-0.2); COMPLETE YES; EOS % 1.1 %; HEMATOCRIT 34.8 % (37-47); IG% 0.2 %; LYMPH % 38.4 %; LYMPH ABS # 2.14 K/uL (1.2-3.4); MEAN CELL VOLUME 89.9 fL (80-100); MEAN CORPUSCULAR HEMOGLOBIN 29.7 pg (25-34); MEAN PLATELET VOLUME 9.7 fL (7.4-10.4); MONO % 6.6 %; NEUT % 52.8 %; PLATELET COUNT 322 K/uL (130-400); RED BLOOD COUNT 3.87 M/uL (4.2-5.4); WHITE BLOOD COUNT 5.57 K/uL (4.8-10.8)
[2016-10-03] MEDS ORDERED: SYN125 PO (20:13)
[2016-10-03 20:16] LABS: BUN/CREATININE RATIO 19.8 (10-20); CALCIUM 9.4 mg/dl (8.5-10.1); CREATININE 0.97 mg/dl (0.60-1.20); POTASSIUM 3.9 mmol/L (3.5-5.1)
--- NOTE | 2016-10-03 20:41 | EMERGENCY ROOM VISIT NOTE ---
History First contact with patient: 19:17 Chief Complaint: RESPIRATORY PROBLEMS Stated Complaint: CANT BREATHE, FLANK PAIN Nursing Triage Summary: pt co right upper abd pain radiating into back, tender to touch. associates difficulty breathing and SOB. states she has been coughing and has phlegm, that "looks like it has pepper in it." pt states problems have been on going since beginning of year, pt has been inpt in hospital and had outpt follow up. states "they can't find anything." pt reports "my quality of life has been going down, the pain is just getting worse and worse." pt breathing regularly and independently at this time. pt skin WNL. cough noted with phlegm. History of Present Illness The patient is a 51 year old female who presents to the Emergency Room with complaints of right sided flank pain. The patient states that she has had this pain on the right side since July when she was admitted to the hospital. The pain is located over her right side and is from the hip to the level of the axilla, and is severe in nature. She denies any nausea, vomiting or fever. She has been following with Urology that has performed an extensive workup including cystoscopy and US. She has also been worked up for her abdominal symptoms with MRCP, CT, and Abdominal Xrays. She says that the pain is worsened with deep breaths and complains of shortness of breath. It is also made worse with eating. She is also having urinary symptoms including burning with urination, frequency, and worsening odor of urine. Review of Systems See HPI for pertinent positives and negatives. A total of ten systems were reviewed and were otherwise negative. Past Medical/Surgical History Medical Problems: (1) Anal Fissure (2) Anxiety State Nos (3) Cannabis Abuse-Unspec (4) Cervical spondylosis (5) Depressive Disorder Nec (6) Fibromyalgia (7) Gastroparesis (8) Hypothyroidism Nos (9) Int Hemrrhoid W Comp Nec (10) Irritable Bowel Syndrome Without Diarrhea (11) n/v/RUQ pain, abn US (12) Pelv Perit Endometriosis (13) Radiculopathy, Cervical Region (14) Radiculopathy, Lumbar Region (15) Solitary Cyst Of Breast (16) Tobacco Use Disorder (17) Vitamin D Deficiency, Unspecified Surgical Problems: (1) History of back surgery (2) S/P appendectomy (3) S/P tonsillectomy Family History Cancer Diabetes mellitus Social History Smoking Status: Never Smoker Alcohol Use: none Drug Use: none Housing Status: lives with family Current/Historical Medications Scheduled Cephalexin Monohydrate (Keflex), 500 MG PO BID Cholecalciferol (Vitamin D), 1,000 INTER.UNIT PO QAM Fluoxetine Hcl (Prozac), 40 MG PO QAM Levothyroxine Sodium (Synthroid), 125 MCG PO QAM Linaclotide (Linzess), 290 MCG PO DAILY Mirabegron (Myrbetriq Er), 50 MG PO DAILY Pantoprazole (Protonix), 40 MG PO DAILY Scheduled PRN Gabapentin (Neurontin), 1 CAP PO TID PRN for Pain Lidocaine (Lidoderm Patch 5%), 1 PATCH TD DAILY PRN for Pain Allergies Coded Allergies: Hydrocodone (Verified Adverse Reaction, Mild, VICODIN CAUSES SEVERE CONSTIPATION, 10/03/16) Physical Exam Vital Signs Date Time Temp Pulse Resp B/P Pulse Ox O2 Delivery O2 Flow Rate FiO2 10/03/16 22:56 65 18 108/75 98 10/03/16 22:27 62 18 105/71 98 Room Air 10/03/16 20:34 72 18 117/57 99 Room Air 10/03/16 20:14 65 10/03/16 19:08 36.7 77 16 124/72 100 Room Air Physical Exam GENERAL: Awake, alert, well-appearing, in no distress HENT: Normocephalic, atraumatic. Oropharynx unremarkable. EYES: Normal conjunctiva. Sclera non-icteric. NECK: Supple. No nuchal rigidity. RESPIRATORY: Clear to auscultation. CARDIAC: Regular rate, normal rhythm. Extremities warm and well perfused. Pulses equal. ABDOMEN: Soft, non-distended. No rebound or guarding. No masses. RECTAL: Deferred. MUSCULOSKELETAL: Tenderness to palpation over right flank, extending from the upper aspect of the hip to the axilla. LOWER EXTREMITIES: Calves are equal size bilaterally and non-tender. No edema. No discoloration. NEURO: Normal sensorium. No sensory or motor deficits noted. SKIN: No rash or jaundice noted. Medical Decision & Procedures Laboratory Results 10/03/16 19:51 Red Blood Count 3.87, Mean Corpuscular Volume 89.9, Mean Corpuscular Hemoglobin 29.7, Mean Corpuscular Hemoglobin Concent 33.0, Mean Platelet Volume 9.7, Neutrophils (%) (Auto) 52.8, Lymphocytes (%) (Auto) 38.4, Monocytes (%) (Auto) 6.6, Eosinophils (%) (Auto) 1.1, Basophils (%) (Auto) 0.9, Neutrophils # (Auto) 2.94, Lymphocytes # (Auto) 2.14, Monocytes # (Auto) 0.37, Eosinophils # (Auto) 0.06, Basophils # (Auto) 0.05 10/03/16 19:51 Test 10/03/16 19:51 10/03/16 21:28 10/03/16 22:24 White Blood Count 5.57 K/uL (4.8-10.8) Red Blood Count 3.87 M/uL (4.2-5.4) Hemoglobin 11.5 g/dL (12.0-16.0) Hematocrit 34.8 % (37-47) Mean Corpuscular Volume 89.9 fL (80-100) Mean Corpuscular Hemoglobin 29.7 pg (25-34) Mean Corpuscular Hemoglobin Concent 33.0 g/dl (32-36) Platelet Count 322 K/uL (130-400) Mean Platelet Volume 9.7 fL (7.4-10.4) Neutrophils (%) (Auto) 52.8 % Lymphocytes (%) (Auto) 38.4 % Monocytes (%) (Auto) 6.6 % Eosinophils (%) (Auto) 1.1 % Basophils (%) (Auto) 0.9 % Neutrophils # (Auto) 2.94 K/uL (1.4-6.5) Lymphocytes # (Auto) 2.14 K/uL (1.2-3.4) Monocytes # (Auto) 0.37 K/uL (0.11-0.59) Eosinophils # (Auto) 0.06 K/uL (0-0.5) Basophils # (Auto) 0.05 K/uL (0-0.2) RDW Standard Deviation 41.0 fL (36.4-46.3) RDW Coefficient of Variation 12.5 % (11.5-14.5) Immature Granulocyte % (Auto) 0.2 % Immature Granulocyte # (Auto) 0.01 K/uL (0.00-0.02) Anion Gap 4.0 mmol/L (3-11) Est Creatinine Clear Calc Drug Dose 57.2 ml/min Estimated GFR () 77.3 Estimated GFR (Non- 66.7 BUN/Creatinine Ratio 19.8 (10-20) Calcium Level 9.4 mg/dl (8.5-10.1) Total Bilirubin 0.3 mg/dl (0.2-1) Direct Bilirubin < 0.1 mg/dl (0-0.2) Aspartate Amino Transf (AST/SGOT) 15 U/L (15-37) Alanine Aminotransferase (ALT/SGPT) 19 U/L (12-78) Alkaline Phosphatase 73 U/L (45-117) Total Protein 7.0 gm/dl (6.4-8.2) Albumin 3.9 gm/dl (3.4-5.0) Urine Color YELLOW Urine Appearance CLEAR (CLEAR) Urine pH 6.5 (4.5-7.5) Urine Specific [place] 1.027 (1.000-1.030) Urine Protein NEG (NEG) Urine Glucose (UA) NEG (NEG) Urine Ketones NEG (NEG) Urine Occult Blood 1+ (NEG) Urine Nitrite NEG (NEG) Urine Bilirubin NEG (NEG) Urine Urobilinogen NEG (NEG) Urine Leukocyte Esterase MODERATE (NEG) Urine WBC (Auto) >30 /hpf (0-5) Urine RBC (Auto) 10-30 /hpf (0-4) Urine Hyaline Casts (Auto) 10-30 /lpf (0-5) Urine Epithelial Cells (Auto) >30 /lpf (0-5) Urine Bacteria (Auto) NEG (NEG) Urine Renal Epithelial Cells 5-10 /lpf (0-5) Bedside D-Dimer 226 ng/mlFEU (0-450) Bedside Troponin I 0.010 ng/ml (0-0.045) Medications Administered Medications (Trade) Dose Ordered Sig/Edie Route Start Time Stop Time Status Last Admin Dose Admin Ketorolac Tromethamine (Toradol Inj) 30 mg NOW STAT IV 10/03/16 19:35 10/03/16 19:38 DC 10/03/16 19:55 30 MG Lidocaine (Lidoderm Patch 5%) 1 patch NOW STAT TD 10/03/16 21:24 10/03/16 21:26 DC 10/03/16 21:46 1 PATCH Gabapentin (Neurontin Cap) 100 mg NOW STAT PO 10/03/16 21:24 10/03/16 21:26 DC 10/03/16 21:47 100 MG Cephalexin Monohydrate (Keflex Cap) 500 mg NOW STAT PO 10/03/16 22:24 10/03/16 22:25 DC 10/03/16 22:50 500 MG Medical Decision Patient has right sided flank and side pain for the last 3 months - Ordered CBC, CMP, Ketorolac 30mg IV - She stated after the Ketorolac that her shortness of breath had improved but not her flank pain - When discussing her urinary symptoms we discussed ordering a UA - Patient started on Gabapentin and given lidocaine patch for pain - Ordered Troponin and D-Dimer - Patient pain significantly improved with pain controlling treatment - UA, Troponin, and D-Dimer all appear negative Impression Primary Impression: Flank pain, chronic Departure Information Dispostion Home / Self-Care Condition GOOD Prescriptions Lidocaine (Lidoderm Patch 5%) 1 Ea Tdsy 1 PATCH TD DAILY Y for Pain, #1 BOX Prov: Mirian Munoz, DO 10/03/16 Gabapentin (NEURONTIN) 100 Mg Cap 1 CAP PO TID Y for Pain, #30 CAP Prov: Mirian Munoz, DO 10/03/16 Cephalexin Monohydrate (Keflex) 500 Mg Cap 500 MG PO BID for 7 Days, #14 CAP Prov: Mirian Munoz, DO 10/03/16 Referrals Patricia Shoemaker M.D. (PCP) Patient Instructions My [facility]
[2016-10-03] MEDS ORDERED: LIDODERM (LIDOCAINE) PATCH 5% TD STA (21:24)
[2016-10-03] MEDS ORDERED: GABAPENTIN 100 MG CAP PO STA (21:24)
[2016-10-03 21:46] LABS: URINE APPEARANCE CLEAR (CLEAR); URINE BILIRUBIN NEG (NEG); URINE COLOR YELLOW; URINE EPITHELIAL CELL AUTO >30 /lpf (0-5); URINE NITRITE NEG (NEG); URINE PH 6.5 (4.5-7.5); URINE SPECIFIC GRAVITY 1.027 (1.000-1.030); UROBILINOGEN NEG (NEG)
[2016-10-03 21:48] LABS: MANUAL MICROSCOPIC REQUIRED? NO; REVIEW REQ? YES
[2016-10-03 22:14] LABS: ALKALINE PHOSPHATASE 73 U/L (45-117); ALT/SGPT 19 U/L (12-78); AST/SGOT 15 U/L (15-37)
[2016-10-03] MEDS ORDERED: CEPHALEXIN MONOHYDRATE 250 MG CAP PO STA (22:24)
[2016-10-03] MEDS ORDERED: CEPH500C PO (22:29)
[2016-10-03] MEDS ORDERED: GABA1CAP PO (22:29)
[2016-10-03] MEDS ORDERED: NF656 TD (22:29)
--- NOTE | 2016-10-03 22:33 | EMERGENCY ROOM VISIT NOTE ---
ED Visit Note First contact with patient: 19:16 I seen and examined the patient at bedside. Patient with chronic right flank pain, since the beginning of the year, has been seen and evaluated by several specialists as an outpatient. Patient has had outpatient CAT scan, MRCP, cystoscopy by urology, EGD by GI. Patient states no etiology for her pain has yet to be discovered are conveyed to her. Patient has previous been tried on pain medications, muscle relaxers, benzodiazepines according to evaluation of the PDMP, however patient states she is not currently taking them. Patient states she has not noticed any change in any pattern or triggers, but feels the pain is more constant over the last 2 weeks. Patient denies fevers, any recent cough or respiratory symptoms to suggest a pulmonary process. Patient states she had a chest x-ray done 2 weeks ago that was reported to her as normal. Patient states she has had recurrent urine tract infections also, and that the urology evaluation was for that as well as hematuria. Patient states she continues to have urinary symptoms, but did not feel they're related to the chronic pain as even after UTI sx resolve, the right flank pain is still present. Discussed possible need for pain management involvement, patient declined saying she does not want to take medication, but wants to find out what is causing the pain. Pt very frustrated and tearful stating that no one is able to tell her why she has pain despite extensive tests and that's why she didn't want to come to the ER tonight but family insisted. Pt states she " lives with the pain daily". Discussed with pt given negative imaging for the same pain over the last several months and reassuring labs, did not feel emergent imaging tonight would reveal new pathology not previously detected. Pt stated she understood and agreed with not pursuing additional imaging tonight that was the same type of test she has already had. Discussed sx to watch/return for, use of meds at home which did provide some relief according to patient. Discussed antibiotics - states had a reaction to bactrim previously , unsure of other meds. No recent cultures noted in EMR. Chose keflex as higher resistance to fluoroquinolones likely.
[2016-10-03 22:43] LABS: POINT OF CARE TROPONIN I 0.01 ng/ml (0-0.045)
[2016-10-03 22:56] VITALS: BP 108/75; PULSE 65; O2SAT 98
--- NOTE | 2016-10-05 13:38 | Pharmacy Progress Note ---
ED Pharmacist Culture FollowUp Date of Service: October 05, 2016. Patient's urine cx is growing gardnerella-like bacilli. This is not a likely urinary pathogen. The UA showed > 30 epis, thus likely was contaminated specimen. This organism could be a contaminant from vaginal tomeka as it was a clean-catch sample. No action required.
[2017-01-25] MEDS ORDERED: ATV/1 PO (11:56)
[2017-01-25] MEDS ORDERED: OXYC-57 PO (11:56)
[2017-01-25] MEDS ORDERED: MIRA1TAB3 PO (11:56)
== END 2016-10-03 22:57 | disposition home or self-care (01) ==
LOC: C.EDB 19:06 → C.EDC 22:57
DX: R10.9 Unspecified abdominal pain (principal); G89.29 Other chronic pain; R06.02 Shortness of breath; R35.0 Frequency of micturition; R39.89 Other symptoms and signs involving the genitourinary system; M79.7 Fibromyalgia; F32.9 Major depressive disorder, single episode, unspecified; F41.9 Anxiety disorder, unspecified; Z79.899 Other long term (current) drug therapy; Z87.19 Personal history of other diseases of the digestive system; Z87.42 Personal history of other diseases of the female genital tract; Z83.3 Family history of diabetes mellitus

== ENCOUNTER → 2016-10-04 | Outpatient (CLI) | payer OTHER ==
[~2016-10-04] MED LIST changes: +ATV/1 PO; +CEPH500C PO; +CHOL1000 PO; +GABA-112 PO; +GABA1CAP PO; +LEVO112T2 PO; +NF656 TD; +OPTIRAY 320 IV PRN; +SYN125 PO
--- NOTE | 2016-10-04 15:15 | DIAGNOSTIC IMAGING REPORT ---
CHEST CTA for PULMONARY ARTERIES CT DOSE: 243.32 mGycm HISTORY: Dyspnea SOB, R/O PE TECHNIQUE: Multiaxial CT images of the chest were performed following the intravenous administration of contrast to evaluate the pulmonary arteries. Maximal intensity projection images were also obtained. COMPARISON STUDY: None. FINDINGS: There is a normal caliber thoracic aorta with no evidence for dissection. There is no evidence for pulmonary embolus. No pleural effusions. No pneumothorax. The liver and spleen are unremarkable. No mediastinal or hilar lymphadenopathy. The central airways are patent. The lungs are clear. IMPRESSION: No evidence for pulmonary embolus. The lungs are clear. Electronically signed by: Valentin Huntley M.D. 10/04/2016 3:14 PM Dictated Date/Time: 10/04/2016 3:12 PM
== END | disposition home or self-care (01) ==
LOC: C.CTS 14:14
PROVIDERS: ATTEND Internal Medicine
DX: M54.9 Dorsalgia, unspecified (principal); R06.02 Shortness of breath

== ENCOUNTER → 2016-10-14 | Outpatient (CLI) | payer OTHER ==
[~2016-10-14] MED LIST changes: -LEVO137T3 PO; -OPTIRAY 320 IV PRN; +SINCALIDE INJ 1.1 MCG in SODIUM CHLORIDE 0.9% 100ML 100 ML IV ONE
--- NOTE | 2016-10-14 10:20 | DIAGNOSTIC IMAGING REPORT ---
NUCLEAR MEDICINE HEPATOBILIARY SCAN WITH EJECTION FRACTION HISTORY: Pain. Nausea. R10.11 Abdominal pain, RUQ (right upper quadrant)[id number] COMPARISON: None. TECHNIQUE: Immediately following the intravenous administration of 5.68 mCi Tc-99m Choletec, dynamic anterior abdominal imaging pre/post 1.1 mcg of Kinevac was performed. FINDINGS: Uniform hepatic tracer accumulation is shown. Prompt intrahepatic biliary excretion is seen. The gallbladder, common bile duct, and small bowel are all visualized by 20 minutes. This appearance represents the normal sequence of biliary excretion. The gallbladder ejection fraction following administration of Kinevac was 95 % (normal >35%). IMPRESSION: 1. No evidence for cystic duct obstruction. 2. Gallbladder ejection fraction calculated to be 95 %. Electronically signed by: Valentin Huntley M.D. 10/14/2016 10:19 AM Dictated Date/Time: 10/14/2016 10:16 AM
== END | disposition home or self-care (01) ==
LOC: C.NUCL 07:42
PROVIDERS: ATTEND Internal Medicine
DX: R10.11 Right upper quadrant pain (principal)

== ENCOUNTER → 2016-11-25 | Outpatient (CLI) | payer OTHER ==
[~2016-11-25] MED LIST changes: -SINCALIDE INJ 1.1 MCG in SODIUM CHLORIDE 0.9% 100ML 100 ML IV ONE
[2016-11-25 17:25] LABS: THYROID STIMULATING HORMONE 0.014 uIu/ml (0.300-4.500)
== END | disposition home or self-care (01) ==
LOC: C.LABBFT 14:37
PROVIDERS: ATTEND Internal Medicine
DX: E03.9 Hypothyroidism, unspecified (principal); R20.9 Unspecified disturbances of skin sensation

== ENCOUNTER 2016-12-27 16:36 | Emergency (ER) | payer OTHER ==
[~2016-12-27] VITALS: Ht 162.6 cm; Wt 56.8 kg
[~2016-12-27 16:36] MED LIST changes: -ATV/1 PO; -CEPH500C PO; -CHOL1000 PO; -GABA-112 PO; -LEVO112T2 PO; -OXYC-57 PO
[2016-12-27 16:39] VITALS: TEMP 36.8; Ht 162.6 cm; Wt 56.8 kg
[2016-12-27] MEDS ORDERED: ONDANSETRON INJ 2 MG/ML 2 ML VIAL IV STA (16:59)
[2016-12-27] MEDS ORDERED: MoRPHine SULFATE 4 MG/ML 1 ML CARP\\VIAL IV STA (16:59)
[2016-12-27] MEDS ORDERED: SODIUM CHLORIDE 0.9% 1000ML 1,000 ML IV STA (16:59)
[2016-12-27] MEDS ORDERED: CHOL1000 PO (17:02)
[2016-12-27] MEDS ORDERED: NF656 TD (17:02)
[2016-12-27] MEDS ORDERED: LEVO112T2 PO (17:02)
[2016-12-27] MEDS ORDERED: GABA-112 PO (17:02)
[2016-12-27 17:26] LABS: BASO % 0.4 %; BASO ABS # 0.03 K/uL (0-0.2); COMPLETE YES; EOS % 0.9 %; HEMATOCRIT 35.1 % (37-47); IG% 0.1 %; LYMPH % 30.5 %; LYMPH ABS # 2.29 K/uL (1.2-3.4); MEAN CELL VOLUME 90.2 fL (80-100); MEAN CORPUSCULAR HEMOGLOBIN 30.3 pg (25-34); MEAN CORPUSCULAR HGB CONC 33.6 g/dl (32-36); MEAN PLATELET VOLUME 9.9 fL (7.4-10.4); MONO % 9.9 %; NEUT % 58.2 %; PLATELET COUNT 305 K/uL (130-400); RED BLOOD COUNT 3.89 M/uL (4.2-5.4)
[2016-12-27 17:37] LABS: PARTIAL THROMBOPLASTIN RATIO 0.9; PROTHROMBIN TIME (PATIENT) 10.4 SECONDS (9.0-12.0)
[2016-12-27 17:49] LABS: ALKALINE PHOSPHATASE 84 U/L (45-117); ALT/SGPT 25 U/L (12-78); AST/SGOT 14 U/L (15-37); BLOOD UREA NITROGEN 18 mg/dl (7-18); BUN/CREATININE RATIO 16.4 (10-20); CALCIUM 8.9 mg/dl (8.5-10.1); CARBON DIOXIDE 30 mmol/L (21-32); CHLORIDE 105 mmol/L (98-107); GLUCOSE 91 mg/dl (70-99); POTASSIUM 4.2 mmol/L (3.5-5.1); SODIUM 140 mmol/L (136-145)
--- NOTE | 2016-12-27 17:53 | EMERGENCY ROOM VISIT NOTE ---
History Report prepared by Moy: Merna Cheung Under the Supervision of: Dr. Vanessa Dawson M.D. First contact with patient: 16:44 Chief Complaint: LEG PAIN,LEG INJURY Stated Complaint: RED-SWELLING PAIN IN LEG,CRAMPING IN THIGHS History of Present Illness The patient is a 51 year old female who presents to the Emergency Room with complaints of worsening right lower leg pain since yesterday morning. She states that she woke up with pain to the anterior portion of her right lower leg. Throughout the day her pain worsened. She is also complaining of cramping pain up the back of her right leg and states that it feels like a charley horse in her leg. Today the patient's lower leg is red and warm to the touch. She rates her pain as a 9/10 in severity. Her pain is worsened with palpation. The patient also states that her right leg feels very tight. She called her PCP today and was advised to come to the ED for further evaluation. The patient denies any pain in her left leg. She denies any personal or family history of blood clots. She denies any recent long trips or recent surgeries. She did have surgery on her cervical spine in June. She is still taking gabapentin PRN. The patient reports some shortness of breath today but states that this has been occurring intermittently since her surgery in June. Source of History: patient Onset: yesterday morning Position: leg (right) Symptom Intensity: 9/10 Quality: cramping, other (tight) Timing: worsening Modifying Factors (Worsening): other (palpation) Review of Systems See HPI for pertinent positives & negatives. A total of 10 systems reviewed and were otherwise negative. Past Medical & Surgical Medical Problems: (1) Anal Fissure (2) Anxiety State Nos (3) Cannabis Abuse-Unspec (4) Cervical spondylosis (5) Depressive Disorder Nec (6) Fibromyalgia (7) Gastroparesis (8) Hypothyroidism Nos (9) Int Hemrrhoid W Comp Nec (10) Irritable Bowel Syndrome Without Diarrhea (11) n/v/RUQ pain, abn US (12) Pelv Perit Endometriosis (13) Radiculopathy, Cervical Region (14) Radiculopathy, Lumbar Region (15) Solitary Cyst Of Breast (16) Tobacco Use Disorder (17) Vitamin D Deficiency, Unspecified Surgical Problems: (1) History of back surgery (2) S/P appendectomy (3) S/P tonsillectomy Family History Cancer Diabetes mellitus Social History Smoking Status: Former Smoker Alcohol Use: none Drug Use: none Housing Status: lives with family Current/Historical Medications Scheduled Cephalexin Monohydrate (Keflex), 500 MG PO QID Cholecalciferol (Vitamin D3), 1,000 UNITS PO DAILY Fluoxetine Hcl (Prozac), 40 MG PO QAM Levothyroxine Sodium (Synthroid), 112 MCG PO DAILY Linaclotide (Linzess), 290 MCG PO DAILY Pantoprazole (Protonix), 40 MG PO DAILY Scheduled PRN Gabapentin (Neurontin), 100 MG PO TID PRN for Pain Lidocaine (Lidoderm Patch 5%), 1 PATCH TD DAILY PRN for Pain Allergies Coded Allergies: No Known Allergies (Unverified , 12/27/16) Physical Exam Vital Signs Date Time Temp Pulse Resp B/P (MAP) Pulse Ox O2 Delivery O2 Flow Rate FiO2 12/27/16 20:45 78 18 114/72 99 12/27/16 19:28 72 18 113/71 99 Room Air 12/27/16 17:30 64 18 116/67 99 Room Air 12/27/16 16:39 36.8 77 18 107/66 97 Room Air Physical Exam Vital signs reviewed. General: Well-appearing 51 year old female, in no significant distress. HEENT: No scleral icterus, PERRLA, neck supple. Atraumatic. Cardiovascular: Regular rate and rhythm, no extra sounds. Pulmonary: Clear to auscultation bilaterally, normal work of breathing. Abdomen: Soft, nontender, nondistended, positive bowel sounds. Musculoskeletal: Atraumatic, no peripheral edema. 7cm area of erythema to the mariano of the right leg, no lymphangitic streaking, no central clearing, no drainage, no fluctuance. Neurologic: Patient awake alert and oriented x 3 Skin: Warm, dry, no rash Medical Decision & Procedures ER Provider Diagnostic Interpretation: Radiology results as stated below per my review and radiologist interpretation: RIGHT VENOUS DOPP LOWER EXT UNILAT CLINICAL HISTORY: RLE pain, DVT Right pain. Edema. TECHNIQUE: Venous Doppler COMPARISON STUDY: None FINDINGS: Normal study IMPRESSION: Normal study The above report was generated using voice recognition software. It may contain grammatical, syntax or spelling errors. Electronically signed by: Valentin Huntley M.D. 12/27/2016 6:00 PM Dictated Date/Time: 12/27/2016 5:56 PM Laboratory Results 12/27/16 17:15 Red Blood Count 3.89, Mean Corpuscular Volume 90.2, Mean Corpuscular Hemoglobin 30.3, Mean Corpuscular Hemoglobin Concent 33.6, Mean Platelet Volume 9.9, Neutrophils (%) (Auto) 58.2, Lymphocytes (%) (Auto) 30.5, Monocytes (%) (Auto) 9.9, Eosinophils (%) (Auto) 0.9, Basophils (%) (Auto) 0.4, Neutrophils # (Auto) 4.36, Lymphocytes # (Auto) 2.29, Monocytes # (Auto) 0.74, Eosinophils # (Auto) 0.07, Basophils # (Auto) 0.03 12/27/16 17:15 Test 12/27/16 17:15 White Blood Count 7.50 K/uL (4.8-10.8) Red Blood Count 3.89 M/uL (4.2-5.4) Hemoglobin 11.8 g/dL (12.0-16.0) Hematocrit 35.1 % (37-47) Mean Corpuscular Volume 90.2 fL (80-100) Mean Corpuscular Hemoglobin 30.3 pg (25-34) Mean Corpuscular Hemoglobin Concent 33.6 g/dl (32-36) Platelet Count 305 K/uL (130-400) Mean Platelet Volume 9.9 fL (7.4-10.4) Neutrophils (%) (Auto) 58.2 % Lymphocytes (%) (Auto) 30.5 % Monocytes (%) (Auto) 9.9 % Eosinophils (%) (Auto) 0.9 % Basophils (%) (Auto) 0.4 % Neutrophils # (Auto) 4.36 K/uL (1.4-6.5) Lymphocytes # (Auto) 2.29 K/uL (1.2-3.4) Monocytes # (Auto) 0.74 K/uL (0.11-0.59) Eosinophils # (Auto) 0.07 K/uL (0-0.5) Basophils # (Auto) 0.03 K/uL (0-0.2) RDW Standard Deviation 43.3 fL (36.4-46.3) RDW Coefficient of Variation 13.2 % (11.5-14.5) Immature Granulocyte % (Auto) 0.1 % Immature Granulocyte # (Auto) 0.01 K/uL (0.00-0.02) Prothrombin Time 10.4 SECONDS (9.0-12.0) Prothromb Time International Ratio 1.0 (0.9-1.1) Activated Partial Thromboplast Time 22.9 SECONDS (21.0-31.0) Partial Thromboplastin Ratio 0.9 Anion Gap 5.0 mmol/L (3-11) Est Creatinine Clear Calc Drug Dose 51.1 ml/min Estimated GFR () 66.4 Estimated GFR (Non- 57.3 BUN/Creatinine Ratio 16.4 (10-20) Calcium Level 8.9 mg/dl (8.5-10.1) Total Bilirubin 0.2 mg/dl (0.2-1) Direct Bilirubin < 0.1 mg/dl (0-0.2) Aspartate Amino Transf (AST/SGOT) 14 U/L (15-37) Alanine Aminotransferase (ALT/SGPT) 25 U/L (12-78) Alkaline Phosphatase 84 U/L (45-117) Total Protein 6.9 gm/dl (6.4-8.2) Albumin 3.7 gm/dl (3.4-5.0) Laboratory results per my review. Medications Administered Medications (Trade) Dose Ordered Sig/Edie Route Start Time Stop Time Status Last Admin Dose Admin Morphine Sulfate (MoRPHine SULFATE INJ) 4 mg NOW STAT IV 12/27/16 16:59 12/27/16 17:01 DC 12/27/16 17:11 4 MG Ondansetron HCl (Zofran Inj) 4 mg NOW STAT IV 12/27/16 16:59 12/27/16 17:01 DC 12/27/16 17:11 4 MG Sodium Chloride 1,000 ml @ 200 mls/hr Q5H STAT IV 12/27/16 16:59 12/27/16 21:24 DC 12/27/16 17:11 200 MLS/HR Cephalexin Monohydrate (Keflex 500MG Home Pack) 1 homepack NOW ONCE PO 12/27/16 20:15 8/8/17 20:16 DC 12/27/16 20:11 1 HOMEPACK Cephalexin Monohydrate (Keflex Cap) 500 mg NOW ONCE PO 12/27/16 20:15 12/27/16 20:16 DC 12/27/16 20:11 500 MG ED Course 1644: Past medical records reviewed. The patient was evaluated in room C5. A complete history and physical examination was performed. 1658: NSS 1000 ml @ 200 mls/hr IV, Zofran 4 mg IV, Morphine sulfate 4 mg IV 2013: I reassessed the patient at this time. She is feeling better and resting comfortably. I discussed the results and treatment plan with the patient. I answered all pertaining questions that she had. She expressed understanding and verbalized agreement. The patient will be discharged home. 2015: Keflex 500 mg PO, Keflex 500 mg PO 1 home pack Medical Decision Differential diagnosis: Etiologies such as cellulitis, abscess, MRSA infection, DVT, necrotizing fasciitis, dermatitis, drug eruption, as well as others were entertained. This patient was evaluated and appeared to be in some discomfort. IV access was obtained and laboratory work was drawn. An ultrasound of the right lower extremity was performed and reveals no evidence of DVT. There is evidence of cellulitis on exam. The patient has no elevation of the WBC. She is not febrile. She responded well to the IV morphine and Zofran given earlier for pain. The patient was discharged with a prescription for Keflex. She was given one tablet in the emergency department. Patient will follow-up with her PCP this week for reevaluation return to the ER for worsening of symptoms or any medical concerns. [place] Drug Monitoring Program Search Results: patient reviewed within database Drug Monitoring Findings: Multiple scripts by the same provider. Medication Reconcilliation Current Medication List: was personally reviewed by me Blood Pressure Screening Patient's blood pressure: Low blood pressure Impression Primary Impression: Cellulitis Scribe Attestation The scribe's documentation has been prepared under my direction and personally reviewed by me in its entirety. I confirm that the note above accurately reflects all work, treatment, procedures, and medical decision making performed by me. Departure Information Dispostion Home / Self-Care Prescriptions Cephalexin Monohydrate (Keflex) 500 Mg Cap 500 MG PO QID, #28 CAP Prov: Vanessa Dawson M.D. 12/27/16 Referrals Patricia Shoemaker M.D. (PCP) Forms HOME CARE DOCUMENTATION FORM, IMPORTANT VISIT INFORMATION Patient Instructions My [facility] Additional Instructions Diagnosis: Cellulitis of the leg Keflex 500 mg 4 times daily for 7 days. Monitor for signs of worsening. Wash with warm soap and water. Follow-up with your physician this week for reevaluation. Return to the ER for worsening of symptoms or any medical concerns. Problem Qualifiers Primary Impression: Cellulitis Site of cellulitis: extremity Site of cellulitis of extremity: lower extremity Laterality: right Qualified Codes: L03.115 - Cellulitis of right lower limb
--- NOTE | 2016-12-27 18:01 | DIAGNOSTIC IMAGING REPORT ---
RIGHT VENOUS DOPP LOWER EXT UNILAT CLINICAL HISTORY: RLE pain, DVT Right pain. Edema. TECHNIQUE: Venous Doppler COMPARISON STUDY: None FINDINGS: Normal study IMPRESSION: Normal study The above report was generated using voice recognition software. It may contain grammatical, syntax or spelling errors. Electronically signed by: Valentin Huntley M.D. 12/27/2016 6:00 PM Dictated Date/Time: 12/27/2016 5:56 PM
[2016-12-27] MEDS ORDERED: CEPHALEXIN MONOHYDRATE 250 MG CAP PO ONE (20:15)
[2016-12-27] MEDS ORDERED: CEPHALEXIN 500MG HOME PACK 1 EA BTL PO ONE (20:15)
[2016-12-27] MEDS ORDERED: CEPH500C PO (20:37)
[2016-12-27 20:45] VITALS: BP 114/72; PULSE 78; O2SAT 99
[2017-01-25] MEDS ORDERED: ATV/1 PO (11:56)
[2017-01-25] MEDS ORDERED: MIRA1TAB3 PO (11:56)
[2017-01-25] MEDS ORDERED: OXYC-57 PO (11:56)
== END 2016-12-27 20:46 | disposition home or self-care (01) ==
LOC: C.EDB 16:38 → C.EDC 20:46
DX: L03.115 Cellulitis of right lower limb (principal); F41.9 Anxiety disorder, unspecified; F32.9 Major depressive disorder, single episode, unspecified; F12.10 Cannabis abuse, uncomplicated; M47.812 Spondylosis without myelopathy or radiculopathy, cervical region; M79.7 Fibromyalgia; K31.84 Gastroparesis; E03.9 Hypothyroidism, unspecified; K64.8 Other hemorrhoids; K58.9 Irritable bowel syndrome, unspecified; M54.12 Radiculopathy, cervical region; M54.16 Radiculopathy, lumbar region; E55.9 Vitamin D deficiency, unspecified; Z87.891 Personal history of nicotine dependence; Z83.3 Family history of diabetes mellitus

== ENCOUNTER → 2017-01-30 | Outpatient (CLI) | payer OTHER ==
[~2017-01-30] MED LIST changes: +ATV/1 PO; +CHOL1000 PO; -CHOL100010 PO; +GABA-112 PO; -GABA1CAP PO; +LEVO112T2 PO; +OXYC-57 PO; -SYN125 PO
--- NOTE | 2017-01-30 09:56 | DIAGNOSTIC IMAGING REPORT ---
MRI CERVICAL WITHOUT CONTRAST CLINICAL HISTORY: CERVICAL SPONDYLOSIS M47.12 BILATERAL SHOULDER AND NECK PAIN. HEADACHES. HISTORY OF PRIOR SURGERY. TECHNIQUE: Sagittal and axial T1, T2 and STIR images were obtained. COMPARISON STUDY: Conventional radiographic study dated 12/13/2016 The axial images are somewhat compromised due to motion artifact. There is artifact secondary to an anterior C5-C7 anterior cervical fusion. There is no suspicious marrow replacement given the limitations of the hardware artifact. No spinal cord abnormalities are evident. C2-3: There is no evidence of disc bulge or focal herniation. There is no spinal or foraminal stenosis. C3-4: There is no evidence of disc bulge or focal herniation. There is no spinal or foraminal stenosis. There is mild bilateral uncovertebral joint spurring C4-5: There are no disc bulges or focal herniations. There is no spinal or foraminal stenosis. There is mild bilateral uncovertebral joint spurring C5-6 :There are no disc bulges or focal herniations. There is no spinal or foraminal stenosis. C6-7: There is no evidence of disc bulge or focal herniation. There is no evidence of spinal or foraminal stenosis. C7-T1: There is no evidence of disc bulge or focal herniation. There is no evidence of spinal or foraminal stenosis. IMPRESSION:Postsurgical changes of a C5-C7 anterior discectomy and cervical spinal fusion. No evidence of disc herniation. No evidence of significant spinal or foraminal stenosis. No cord lesions identified. Electronically signed by: Oj Harvey M.D. 01/30/2017 9:54 AM Dictated Date/Time: 01/30/2017 9:49 AM
== END | disposition home or self-care (01) ==
LOC: C.MRI 09:03
PROVIDERS: ATTEND Orthopaedic Surgery Orthopaedic Surgery of the Spine
DX: M47.12 Other spondylosis with myelopathy, cervical region (principal); Z98.1 Arthrodesis status

== ENCOUNTER → 2017-02-09 | Day surgery (SDC) | payer OTHER ==
[2017-01-25 11:57] VITALS: Ht 162.6 cm; Wt 56.8 kg
[~2017-02-09] VITALS: Ht 162.6 cm; Wt 56.8 kg
[~2017-02-09] MED LIST changes: +LIDOCAINE HCL 2% 2 ML VIAL (20MG/ML) ONE; +MIDAZOLAM HCL 1 MG/ML 2ML VIAL ONE; +PROPOFOL IV EMULSION 10 MG/ML 20 ML VIAL IV ONE; +SODIUM CHLORIDE 0.9% 500ML 500 ML IV ONE
--- NOTE | 2017-02-09 14:45 | Endo History and Physical ---
History & Physical Date of Service: Feb 09, 2017. Chief Complaint: SCREENING Referring Physician: DR RICHEY History of Present Illness 51 yo CF who presents for screening colonoscopy. Past Surgical History Hx Cardiac Surgery: No Hx Internal Defibrillator: No Hx Pacemaker: No Hx Abdominal Surgery: Yes (LAP X2 FOR ENDOMETRIOSIS, PARTIAL HYSTER, APPY, INTERNAL HEMORRHOIDECTOMY) Hx of Implantable Prosthesis: No Hx Post-Op Nausea and Vomiting: No Hx Cancer Surgery: No Hx Thoracic Surgery: No Hx Orthopedic: Yes (L4-5 LUMBAR SURGERY, C4-5-6-7 FUSION AND DOUBLE LAMINECTOMY (LIMITED ROM)) Hx Urinary Tract Surgery: No Family History None Social History Smoking Status: Former Smoker Hx Substance Use: No Hx Alcohol Use: No Allergies Coded Allergies: No Known Allergies (Unverified , 02/09/17) Current Medications Reported Home Medications Medications Dose Route/Sig Max Daily Dose Days Date Category Dose Instructions Percocet 5MG/325MG (Oxycodone/Acetaminophen) Tab 1 Tab PO BID PRN 01/25/17 Reported PAIN Myrbetriq Er (Mirabegron) 50 Mg Tab 50 Mg PO DAILY PRN 01/25/17 Reported Ativan (Lorazepam) 1 Mg Tab 0.5-1 Tab PO Q6H PRN 01/25/17 Reported Lidoderm Patch 5% (Lidocaine) 1 Ea Tdsy 1 Patch TD DAILY PRN 12/27/16 Reported Neurontin (Gabapentin) 100 Mg Cap 100 Mg PO TID PRN 12/27/16 Reported Synthroid (Levothyroxine Sodium) 112 Mcg Tab 112 Mcg PO QAM 12/27/16 Reported Vitamin D3 (Cholecalciferol) 1,000 Unit Tab 1,000 Units PO QAM 12/27/16 Reported Protonix (Pantoprazole Sodium) 40 Mg Tab 40 Mg PO QAM 07/20/16 Reported TAKE THIS MEDICATION 30 MINUTES BEFORE BREAKFAST Linzess (Linaclotide) 290 Mcg Cap 290 Mcg PO QAM 07/20/16 Reported TAKE THIS MEDICATION 30 MINUTES BEFORE BREAKFAST Prozac (Fluoxetine Hcl) 40 Mg Cap 40 Mg PO QAM 05/09/15 Reported Vital Signs Weight (Kilograms): 56.82 Height (Feet): 5 Height (Inches): 4 Date Time Temp Pulse Resp B/P (MAP) Pulse Ox O2 Delivery O2 Flow Rate FiO2 02/09/17 14:08 36.8 69 16 101/48 (65) 97 Room Air Physical Exam General Appearance: WD/WN, no apparent distress Respiratory/Chest: Auscultation: breath sounds normal Cardiovascular: Heart Auscultation: RRR Abdomen: Bowel Sounds: normal Inspection & Palpation: soft, non-distended, no tenderness, guarding & rebound Assessment and Plan Assessment: 51 yo CF who presents for screening colonoscopy. Plan: Proceed with colonoscopy.
--- NOTE | 2017-02-09 15:22 | GI REPORT ---
Procedure Date: 02/09/2017 2:44 PM Procedure: Colonoscopy Indications: Screening for colorectal malignant neoplasm Medicines: Monitored Anesthesia Care Complications: No immediate complications. Estimated Blood Loss: Estimated blood loss: none. Procedure: Pre-Anesthesia Assessment: - Prior to the procedure, a History and Physical was performed, and patient medications and allergies were reviewed. The patient's tolerance of previous anesthesia was also reviewed. The risks and benefits of the procedure and the sedation options and risks were discussed with the patient. All questions were answered, and informed consent was obtained. Prior Anticoagulants: The patient has taken no previous anticoagulant or antiplatelet agents. ASA Grade Assessment: II - A patient with mild systemic disease. After reviewing the risks and benefits, the patient was deemed in satisfactory condition to undergo the procedure. After I obtained informed consent, the scope was passed under direct vision. Throughout the procedure, the patient's blood pressure, pulse, and oxygen saturations were monitored continuously. The scope was introduced through the anus and advanced to the cecum, identified by appendiceal orifice and ileocecal valve. The colonoscopy was performed without difficulty. The patient tolerated the procedure well. The quality of the bowel preparation was good. The ileocecal valve, appendiceal orifice, and rectum were photographed. Findings: The colon (entire examined portion) appeared normal. Impression: - The entire examined colon is normal. - No specimens collected. Recommendation: - Resume previous diet. - Continue present medications. - Repeat colonoscopy in 10 years for surveillance. - Return to primary care physician as previously scheduled. Randy Alas, DO 02/09/2017 3:21:52 PM This report has been signed electronically. Note Initiated On: 02/09/2017 2:44 PM I attest to the content of the Intraoperative Record and orders documented therein, exceptions below
--- NOTE | 2017-02-09 15:40 | Anesthesiology Progress Note ---
Anesthesia Post Op Note Date & Time Feb 09, 2017 at 15:40 Vital Signs Pain Intensity: 0 Vital Signs Past 12 Hours Date Time Temp Pulse Resp B/P (MAP) Pulse Ox O2 Delivery O2 Flow Rate FiO2 02/09/17 15:24 75 14 109/59 (76) 98 Room Air 02/09/17 14:08 36.8 69 16 101/48 (65) 97 Room Air Notes Mental Status: alert / awake / arousable, participated in evaluation Pt Amnestic to Procedure: Yes Nausea / Vomiting: adequately controlled Pain: adequately controlled Airway Patency, RR, SpO2: stable & adequate BP & HR: stable & adequate Hydration State: stable & adequate Anesthetic Complications: no major complications apparent
[2017-02-09 16:03] VITALS: BP 100/65; PULSE 71; O2SAT 98
--- NOTE | 2017-02-09 16:14 | Discharge Instructions ---
Endoscopy Patient Instructions Date / Procedure(s) Performed Feb 09, 2017. Colonoscopy Allergy Information Coded Allergies: No Known Allergies (Unverified , 02/09/17) Discharge Date / Findings Feb 09, 2017. Normal colonoscopy Medication Instructions OK to resume all medications today as prescribed Reported Home Medications Medications Dose Route/Sig Max Daily Dose Days Date Category Dose Instructions Percocet 5MG/325MG (Oxycodone/Acetaminophen) Tab 1 Tab PO BID PRN 01/25/17 Reported PAIN Myrbetriq Er (Mirabegron) 50 Mg Tab 50 Mg PO DAILY PRN 01/25/17 Reported Ativan (Lorazepam) 1 Mg Tab 0.5-1 Tab PO Q6H PRN 01/25/17 Reported Lidoderm Patch 5% (Lidocaine) 1 Ea Tdsy 1 Patch TD DAILY PRN 12/27/16 Reported Neurontin (Gabapentin) 100 Mg Cap 100 Mg PO TID PRN 12/27/16 Reported Synthroid (Levothyroxine Sodium) 112 Mcg Tab 112 Mcg PO QAM 12/27/16 Reported Vitamin D3 (Cholecalciferol) 1,000 Unit Tab 1,000 Units PO QAM 12/27/16 Reported Protonix (Pantoprazole Sodium) 40 Mg Tab 40 Mg PO QAM 07/20/16 Reported TAKE THIS MEDICATION 30 MINUTES BEFORE BREAKFAST Linzess (Linaclotide) 290 Mcg Cap 290 Mcg PO QAM 07/20/16 Reported TAKE THIS MEDICATION 30 MINUTES BEFORE BREAKFAST Prozac (Fluoxetine Hcl) 40 Mg Cap 40 Mg PO QAM 05/09/15 Reported Provider Instructions Activity Restrictions - No exercising or heavy lifting for 24 hours. - Do not drink alcohol the day of the procedure. - Do not drive a car or operate machinery until the day after the procedure. - Do not make any important decisions or sign important papers in 24 hours after the procedure. Following Day: - Return to full activity which may include returning to work/school. Diet Start your diet with liquids and light foods (jello, soup, juice, toast). Then eat your usual diet if not nauseated. Treatment For Common After Affects For mild abdominal pain, bloating, or excessive gas: - Rest - Eat lightly - Lie on right side Follow-Up Information Follow-up with DR RICHEY as scheduled Anesthesia Information What You Should Know You have had a procedure that required some medicine to reduce anxiety and discomfort. This treatment is called moderate sedation. After receiving the treatment, you may be sleepy, but you will be able to breathe on your own. The effects of the treatment may last for several hours. Follow these instructions along with Activity/Diet recommendations noted above: * Do NOT do anything where dizziness or clumsiness would be dangerous. * Rest quietly at home today, then you can be up and about tomorrow. * Have a responsible person stay with you the rest of today. * You may have had an I.V. today. If so, you may take the dressing off later today. Recommendations Call your doctor if: * Trouble breathing * Continuous vomiting for more than 24 hours * Temperature above 101 degrees * Severe abdominal pain or bloating * Pain not relieved by pain medicine ordered * There is increased drainage or redness from any incision * A large amount of rectal bleeding greater than 2-3 tablespoons. (If you had a polyp/s removed or have hemorrhoids, a small amount of blood - from the rectum is to be expected.) * You have any unanswered questions or concerns. IN THE EVENT OF A SERIOUS EMERGENCY, GO TO THE NEAREST EMERGENCY ROOM Your discharge instructions were prepared by provider Randy Alas. Patient Instructions Signature Page Martha Hogue Patient (or Guardian) Signature/Date: I have read and understand the instructions given to me by my caregivers. Caregiver/RN/Doctor Signature/Date: The above-named patient and/or guardian has received patient instructions on this date. + Original Patient Signature Page (only) stays with chart. Please make copy for patient.
== END | disposition home or self-care (01) ==
LOC: C.GI 13:47
PROVIDERS: ATTEND Internal Medicine
DX: Z12.11 Encounter for screening for malignant neoplasm of colon (principal); Z87.891 Personal history of nicotine dependence; Z79.899 Other long term (current) drug therapy

== ENCOUNTER → 2017-02-13 | Outpatient (CLI) | payer OTHER ==
[~2017-02-13] MED LIST changes: -LIDOCAINE HCL 2% 2 ML VIAL (20MG/ML) ONE; -MIDAZOLAM HCL 1 MG/ML 2ML VIAL ONE; -PROPOFOL IV EMULSION 10 MG/ML 20 ML VIAL IV ONE; -SODIUM CHLORIDE 0.9% 500ML 500 ML IV ONE
--- NOTE | 2017-02-13 09:39 | DIAGNOSTIC IMAGING REPORT ---
LEFT SHOULDER MRI HISTORY: LEFT SHOULDER PAIN, possible rotator cuff tear. TECHNIQUE: Multiplanar multisequence MRI of the left shoulder was performed without contrast. COMPARISON STUDY: Bilateral shoulders 02/01/2017. FINDINGS: AC joint: Moderate AC joint arthrosis demonstrated by joint space narrowing and mild surrounding soft tissue edema. There is also greater than expected edema the distal right clavicle. This may be due to long-standing degenerative change or a bone contusion. Rotator cuff: Mild increased signal within the supraspinatus tendon consistent with a tendinopathy. The subscapularis, infraspinatus, teres minor tendons are intact. No fluid within the subacromial/subdeltoid bursa. Labrum: Greater than expected signal abnormality within the superior labrum which likely represents a SLAP tear. Biceps tendon: Intact Bones: No acute fracture or dislocation. Cartilage: Intact Miscellaneous: No significant joint effusion. IMPRESSION: 1. Greater than expected signal abnormality within the superior labrum which most likely represents a SLAP tear. 2. Mild supraspinatus tendinopathy. 3. Moderate AC joint arthrosis. There is also greater than expected marrow edema within the distal clavicle and mild surrounding soft tissue edema. Therefore, this could be related to a bone contusion or grade I acromioclavicular separation if the patient has had recent trauma. Electronically signed by: Soren Carney M.D. 02/13/2017 9:37 AM Dictated Date/Time: 02/13/2017 9:29 AM
== END | disposition home or self-care (01) ==
LOC: C.MRIBC 08:41
PROVIDERS: ATTEND Orthopaedic Surgery Orthopaedic Surgery of the Spine
DX: M75.92 Shoulder lesion, unspecified, left shoulder (principal); M19.012 Primary osteoarthritis, left shoulder; R93.7 Abnormal findings on diagnostic imaging of other parts of musculoskeletal system

== ENCOUNTER → 2017-02-27 | Outpatient (CLI) | payer OTHER ==
[2017-02-27 13:14] LABS: BASO % 1.6 %; BASO ABS # 0.09 K/uL (0-0.2); COMPLETE YES; EOS % 2.5 %; HEMATOCRIT 39.2 % (37-47); IG% 0.2 %; LYMPH % 30.4 %; LYMPH ABS # 1.73 K/uL (1.2-3.4); MEAN CELL VOLUME 92.2 fL (80-100); MEAN CORPUSCULAR HEMOGLOBIN 29.6 pg (25-34); MEAN CORPUSCULAR HGB CONC 32.1 g/dl (32-36); MEAN PLATELET VOLUME 10.4 fL (7.4-10.4); MONO % 9.3 %; PLATELET COUNT 361 K/uL (130-400); RED BLOOD COUNT 4.25 M/uL (4.2-5.4)
[2017-02-27 14:03] LABS: BLOOD UREA NITROGEN 20 mg/dl (7-18); BUN/CREATININE RATIO 21.7 (10-20); CALCIUM 9.2 mg/dl (8.5-10.1); CARBON DIOXIDE 29 mmol/L (21-32); CHLORIDE 103 mmol/L (98-107); CREATININE 0.94 mg/dl (0.60-1.20); GLUCOSE 63 mg/dl (70-99); POTASSIUM 4.5 mmol/L (3.5-5.1); SODIUM 137 mmol/L (136-145)
== END | disposition home or self-care (01) ==
LOC: C.CPL 11:54
PROVIDERS: ATTEND Orthopaedic Surgery
DX: M75.80 Other shoulder lesions, unspecified shoulder (principal)

== ENCOUNTER 2017-06-28 09:10 | Emergency (ER) | payer OTHER ==
[~2017-06-28] VITALS: Ht 160 cm; Wt 63.4 kg
[2017-06-28 09:17] VITALS: TEMP 36.4; Ht 160 cm; Wt 63.4 kg
[2017-06-28] MEDS ORDERED: ONDANSETRON INJ 2 MG/ML 2 ML VIAL IV STA (09:21)
[2017-06-28] MEDS ORDERED: SODIUM CHLORIDE 0.9% 1000ML 1,000 ML IV STA (09:21)
--- NOTE | 2017-06-28 09:27 | EMERGENCY ROOM VISIT NOTE ---
History Report prepared by Moy: Isabelle Oliveira Under the Supervision of: Dr. Kalyan Gramajo M.D. First contact with patient: 09:14 Stated Complaint: ILLNESS/ANXIETY History of Present Illness The patient is a 51 year old white female with a past medical history of anxiety, fibromyalgia, gastroparesis, IBS who presents to the ED with a cc of constant nausea beginning 2 am this morning. Positive loose stool, dry cough, abdominal pain. Negative vomiting, recent antibiotic use, stream or well water. The pt had a flu shot this year. The pt is a former smoker. The pt states she drank alcohol last night. Source of History: patient Onset: 2 am Position: other (generalized) Quality: other (nausea) Timing: constant Associated Symptoms: + cough, + nausea, + abdominal pain, No vomiting Review of Systems See HPI for pertinent positives and negatives. A total of ten systems were reviewed and were otherwise negative. Past Medical & Surgical Medical Problems: (1) Anal Fissure (2) Anxiety State Nos (3) Cannabis Abuse-Unspec (4) Cervical spondylosis (5) Depressive Disorder Nec (6) Fibromyalgia (7) Gastroparesis (8) Hypothyroidism Nos (9) Int Hemrrhoid W Comp Nec (10) Irritable Bowel Syndrome Without Diarrhea (11) n/v/RUQ pain, abn US (12) Pelv Perit Endometriosis (13) Radiculopathy, Cervical Region (14) Radiculopathy, Lumbar Region (15) Solitary Cyst Of Breast (16) Tobacco Use Disorder (17) Vitamin D Deficiency, Unspecified Surgical Problems: (1) History of back surgery (2) S/P appendectomy (3) S/P tonsillectomy Family History Cancer Diabetes mellitus Social History Smoking Status: Former Smoker Alcohol Use: none Drug Use: none Housing Status: lives with family Current/Historical Medications Scheduled Cholecalciferol (Vitamin D3), 1,000 UNITS PO QAM Fluoxetine Hcl (Prozac), 40 MG PO QAM Levothyroxine Sodium (Synthroid), 112 MCG PO QAM Linaclotide (Linzess), 290 MCG PO QAM Scheduled PRN Gabapentin (Neurontin), 100 MG PO TID PRN for Pain Lorazepam (Ativan), 0.5-1 TAB PO Q6H PRN for Anxiety Ondansetron Hcl (Zofran), 4 MG PO Q8H PRN for Nausea Allergies Coded Allergies: No Known Allergies (Unverified , 06/28/17) Physical Exam Vital Signs Date Time Temp Pulse Resp B/P (MAP) Pulse Ox O2 Delivery O2 Flow Rate FiO2 06/28/17 12:06 91 18 98/50 99 Room Air 06/28/17 11:19 87 18 114/72 100 Room Air 06/28/17 10:14 77 24 134/62 100 Room Air 06/28/17 09:37 86 06/28/17 09:17 36.4 83 26 118/66 100 Room Air Physical Exam GENERAL: Awake, alert, anxious-appearing, NAD HENT: Normocephalic, atraumatic. EYES: Normal conjunctiva. Sclera non-icteric. NECK: Supple. No nuchal rigidity. FROM. RESPIRATORY: Hyperventilating. CTAB, no rhonchi, wheezing, crackles CARDIAC: RRR, no MRG ABDOMEN: Epigastric discomfort, soft, NTND, BS+ MSK: No chest wall TTP, no LE edema NEURO: GCS 15, CN 2-12 intact, moves all 4s on command SKIN: Multiple tattoos. No rash or jaundice noted. Medical Decision & Procedures Laboratory Results 06/28/17 09:34 Red Blood Count 3.84, Mean Corpuscular Volume 89.3, Mean Corpuscular Hemoglobin 30.5, Mean Corpuscular Hemoglobin Concent 34.1, Mean Platelet Volume 11.0, Neutrophils (%) (Auto) 90.7, Lymphocytes (%) (Auto) 6.2, Monocytes (%) (Auto) 2.7, Eosinophils (%) (Auto) 0.0, Basophils (%) (Auto) 0.2, Neutrophils # (Auto) 11.77, Lymphocytes # (Auto) 0.81, Monocytes # (Auto) 0.35, Eosinophils # (Auto) 0.00, Basophils # (Auto) 0.03 06/28/17 09:34 Test 06/28/17 09:34 06/28/17 10:30 White Blood Count 12.98 K/uL (4.8-10.8) Red Blood Count 3.84 M/uL (4.2-5.4) Hemoglobin 11.7 g/dL (12.0-16.0) Hematocrit 34.3 % (37-47) Mean Corpuscular Volume 89.3 fL (80-100) Mean Corpuscular Hemoglobin 30.5 pg (25-34) Mean Corpuscular Hemoglobin Concent 34.1 g/dl (32-36) Platelet Count 333 K/uL (130-400) Mean Platelet Volume 11.0 fL (7.4-10.4) Neutrophils (%) (Auto) 90.7 % Lymphocytes (%) (Auto) 6.2 % Monocytes (%) (Auto) 2.7 % Eosinophils (%) (Auto) 0.0 % Basophils (%) (Auto) 0.2 % Neutrophils # (Auto) 11.77 K/uL (1.4-6.5) Lymphocytes # (Auto) 0.81 K/uL (1.2-3.4) Monocytes # (Auto) 0.35 K/uL (0.11-0.59) Eosinophils # (Auto) 0.00 K/uL (0-0.5) Basophils # (Auto) 0.03 K/uL (0-0.2) RDW Standard Deviation 43.4 fL (36.4-46.3) RDW Coefficient of Variation 13.2 % (11.5-14.5) Immature Granulocyte % (Auto) 0.2 % Immature Granulocyte # (Auto) 0.02 K/uL (0.00-0.02) Anion Gap 9.0 mmol/L (3-11) Est Creatinine Clear Calc Drug Dose 65.5 ml/min Estimated GFR () 85.8 Estimated GFR (Non- 74.0 BUN/Creatinine Ratio 18.1 (10-20) Calcium Level 9.3 mg/dl (8.5-10.1) Total Bilirubin 0.5 mg/dl (0.2-1) Direct Bilirubin 0.1 mg/dl (0-0.2) Aspartate Amino Transf (AST/SGOT) 18 U/L (15-37) Alanine Aminotransferase (ALT/SGPT) 18 U/L (12-78) Alkaline Phosphatase 66 U/L (45-117) Total Protein 7.2 gm/dl (6.4-8.2) Albumin 3.8 gm/dl (3.4-5.0) Lipase 100 U/L (73-393) Urine Color YELLOW Urine Appearance CLEAR (CLEAR) Urine pH >= 9.0 (4.5-7.5) Urine Specific [place] 1.016 (1.000-1.030) Urine Protein NEG (NEG) Urine Glucose (UA) NEG (NEG) Urine Ketones 2+ (NEG) Urine Occult Blood TRACE (NEG) Urine Nitrite NEG (NEG) Urine Bilirubin NEG (NEG) Urine Urobilinogen NEG (NEG) Urine Leukocyte Esterase NEG (NEG) Urine WBC (Auto) 1-5 /hpf (0-5) Urine RBC (Auto) 0-4 /hpf (0-4) Urine Hyaline Casts (Auto) 0 /lpf (0-5) Urine Epithelial Cells (Auto) 10-20 /lpf (0-5) Urine Bacteria (Auto) 1+ (NEG) Urine Test NEG (NEG) Laboratory results reviewed by me Medications Administered Medications (Trade) Dose Ordered Sig/Edie Route Start Time Stop Time Status Last Admin Dose Admin Sodium Chloride 1,000 ml @ 999 mls/hr Q1H1M STAT IV 06/28/17 09:21 06/28/17 10:21 DC 06/28/17 09:38 999 MLS/HR Ondansetron HCl (Zofran Inj) 4 mg NOW STAT IV 06/28/17 09:21 06/28/17 09:23 DC 06/28/17 09:39 4 MG Metoclopramide HCl (Reglan Inj) 10 mg NOW STAT IV. 06/28/17 10:04 06/28/17 10:06 DC 06/28/17 10:13 10 MG Lorazepam (Ativan Tab) 0.5 mg NOW STAT PO 06/28/17 11:20 06/28/17 11:22 DC 06/28/17 11:46 0.5 MG ECG Indication: nausea Rate (beats per minute): 81 Rhythm: normal sinus Findings: other (normal intervals, right axis deviation, obvious motion artifact, no obvious STS changes or TWI. ) Change: EKG interpreted by me. ED Course 09: The patient was evaluated in room B3B. A complete history and physical exam was performed. 1149: The patient states she is not feeling much better. She will do a PO challenge. 1203: The patient tolerated PO. 1214: I reevaluated the patient. Discussed results and discharge instructions: She verbalized understanding and agreement. The patient is ready for discharge. Medical Decision The patient is a 51 year old white female with a past medical history of anxiety, fibromyalgia, gastroparesis, IBS who presents to the ED with a cc of constant nausea beginning 2 am this morning. Differential diagnosis: Etiologies such as gastroenteritis, food borne illness, infections, appendicitis , diverticulitis, inflammatory bowel disease, obstruction, GI bleed, biliary pathology, as well as others were entertained. Patient was seen and evaluated the bedside. Patient does have a prior history of some gastroparesis. Patient did report drinking some alcohol last evening. Upon further report the patient did not show up to work and when she was found she called the ambulance for further evaluation. Patient has complained of some persistent persistent nausea with vomiting. Patient denies any recent sick contacts, recent travel, or antibiotic use. Patient has fairly normal vital signs. Patient did have blood work completed along with IV fluids, and anti-emetics. Patient's blood work fairly unremarkable. Patient's urine did have +1 urine bacteria however without any leukocytes or nitrites patient doesn' t have any lower abdominal pain. Patient's labs fairly unremarkable. White blood cell count 12,000. This is nonspecific and may be reactive secondary to her vomiting. Patient was deemed suitable for outpatient follow-up and treatment at this time. Believe her gastritis is likely related to her drinking. Given her stable vital signs and fairly benign exam I don't think she requires any more advanced imaging or blood work. Patient was able tolerate some by mouth. Patient was given prescriptions for Zofran as outpatient. Patient was given strict follow-up, discharge, and return precautions. All questions were answered. Patient was deemed suitable for outpatient follow-up at this time. Patient agreed with the plan of care and was safely discharged home. The chart was completed utilizing [employer] Speech voice recognition software. Grammatical errors, random word insertions, pronoun errors, and incomplete sentences are an occasional consequence of this system due to software limitations, ambient noise, and hardware issues. Any formal questions or concerns about the content, text, or information contained within the body of this dictation should be directly addressed to the physician for clarification. Medication Reconcilliation Current Medication List: was personally reviewed by me Blood Pressure Screening Patient's blood pressure: Normal blood pressure Impression Primary Impression: Gastritis Additional Impressions: Alcohol abuse Anemia Hypokalemia Scribe Attestation The scribe's documentation has been prepared under my direction and personally reviewed by me in its entirety. I confirm that the note above accurately reflects all work, treatment, procedures, and medical decision making performed by me. Departure Information Dispostion Home / Self-Care Prescriptions Ondansetron Hcl (ZOFRAN) 4 Mg Tab 4 MG PO Q8H Y for Nausea, #12 TAB Prov: Kalyan Gramajo M.D. 06/28/17 Referrals Patricia Shoemaker M.D. (PCP) Patient Instructions Alcohol Abuse - [facility], My [facility] Additional Instructions Please return to the emergency department if you have worsening or recurrent symptoms not amenable to at-home treatment. Please call for a follow-up appointment with her primary care physician. Please take your medications as prescribed. If you have other concerns and/or complaints please feel free to also call your primary care physician's office or return the ED for further evaluation, management, and treatment. You may take 600 mg Ibuprofen every 6 hours as needed for pain with food for no more than 2 consecutive days. You may take tylenol 1000 mg every 6 hours as needed for pain. You may take motrin and tylenol separately or at the same time. Take your medications as prescribed. Please consider abstaining from alcohol. You have been examined and treated today on an emergency basis only. This is not a substitute for, or an effort to provide, complete comprehensive medical care. It is impossible to recognize and treat all injuries or illnesses in a single emergency department visit. It is therefore important that you follow up closely with [facility], your PCP, and/or your specialist(s). Call as soon as possible for an appointment. Thank you for your time and consideration. I look forward to speaking with you again soon. Please don't hesitate to call us if you have any questions. Problem Qualifiers Primary Impression: Gastritis Gastritis type: alcoholic Chronicity: acute Gastritis bleeding: presence of bleeding unspecified Qualified Codes: K29.20 - Alcoholic gastritis without bleeding Additional Impressions: Anemia Anemia type: unspecified type Qualified Codes: D64.9 - Anemia, unspecified
[2017-06-28] MEDS ORDERED: METOCLOPRAMIDE HCL INJ 5 MG/ML 2 ML VIAL IV. STA (10:04)
[2017-06-28 11:06] LABS: BASO % 0.2 %; BASO ABS # 0.03 K/uL (0-0.2); HEMATOCRIT 34.3 % (37-47); HEMOGLOBIN 11.7 g/dL (12.0-16.0); IG# 0.02 K/uL (0.00-0.02); LYMPH % 6.2 %; LYMPH ABS # 0.81 K/uL (1.2-3.4); MEAN CELL VOLUME 89.3 fL (80-100); MEAN CORPUSCULAR HEMOGLOBIN 30.5 pg (25-34); MEAN CORPUSCULAR HGB CONC 34.1 g/dl (32-36); MONO % 2.7 %; MONO ABS # 0.35 K/uL (0.11-0.59); NEUT % 90.7 %; NEUT ABS # 11.77 K/uL (1.4-6.5); PLATELET COUNT 333 K/uL (130-400); RED CELL DISTRIBUTION WIDTH CV 13.2 % (11.5-14.5); RED CELL DISTRIBUTION WIDTH SD 43.4 fL (36.4-46.3); WHITE BLOOD COUNT 12.98 K/uL (4.8-10.8)
[2017-06-28 11:18] LABS: ALBUMIN 3.8 gm/dl (3.4-5.0); CALCIUM 9.3 mg/dl (8.5-10.1); CREATININE 0.89 mg/dl (0.60-1.20); POTASSIUM 3.4 mmol/L (3.5-5.1)
[2017-06-28 11:20] LABS: TOTAL PROTEIN 7.2 gm/dl (6.4-8.2)
[2017-06-28] MEDS ORDERED: LORAZEPAM 0.5 MG TAB PO STA (11:20)
[2017-06-28] MEDS ORDERED: ONDA4TAB46 PO (11:44)
[2017-06-28 12:06] VITALS: BP 98/50; PULSE 91; O2SAT 99
--- NOTE | 2017-06-30 13:58 | Pharmacy Progress Note ---
ED Pharmacist Culture FollowUp Date of Service: Jun 30, 2017. Patient with >100,000 CFU/ml E. Coli in the urine. The patient did not present with urinary symptoms and UA was fairly unimpressive. After discussing with Dr. Arellano, it was decided that if the patient was still feeling unwell, then I will call in a prescription for keflex 500mg BID X 7 days, but if they are feeling better than do not need to treat. I called patient and left a voicemail to return call.
== END 2017-06-28 12:18 | disposition home or self-care (01) ==
LOC: EDBD 09:10 → C.EDB 09:13
DX: K29.70 Gastritis, unspecified, without bleeding (principal); D64.9 Anemia, unspecified; E87.6 Hypokalemia; F10.10 Alcohol abuse, uncomplicated; F41.9 Anxiety disorder, unspecified; F32.9 Major depressive disorder, single episode, unspecified; M79.7 Fibromyalgia; E03.9 Hypothyroidism, unspecified; Z79.899 Other long term (current) drug therapy; Z87.891 Personal history of nicotine dependence

== ENCOUNTER 2017-07-01 20:22 | Emergency (ER) | payer OTHER ==
[~2017-07-01] VITALS: Ht 162.6 cm; Wt 60.0 kg
[~2017-07-01 20:22] MED LIST changes: -MIRA1TAB3 PO; -NF656 TD; +ONDA4TAB46 PO; -OXYC-57 PO; -PANT40TA PO
[2017-07-01 20:30] VITALS: BP 132/76; PULSE 73; TEMP 36.7; O2SAT 100; Ht 162.6 cm; Wt 60.0 kg
[2017-07-01] MEDS ORDERED: PROMETHAZINE HCL 25 MG TAB PO ONE (20:45)
[2017-07-01] MEDS ORDERED: HYDROCODONE/ACETAMIN 5/325MG TAB PO ONE (20:45)
--- NOTE | 2017-07-01 21:02 | DIAGNOSTIC IMAGING REPORT ---
HEAD WITHOUT CONTRAST (CT) CLINICAL HISTORY: 51 years-old Female presenting with Fall. Head injury. . TECHNIQUE: Multidetector CT imaging of the head was performed without the use of intravenous contrast. IV contrast: None. A dose lowering technique was used consistent with the principles of ALARA (as low as reasonably achievable). COMPARISON: None. CT DOSE (mGy.cm): The estimated cumulative dose is 614.27 mGy.cm. FINDINGS: Construction Driver topogram: Unremarkable. Ventricles and sulci normal in size. Brain parenchyma normal in appearance with preserved link-white differentiation. No mass effect or midline shift. No hemorrhage or acute territorial infarct. No extra-axial fluid collection. Paranasal sinuses and mastoid air cells clear. Calvarium intact. Minimal left frontal subcutaneous swelling, infiltration, and subgaleal hematoma. IMPRESSION: 1. No acute intracranial abnormality. 2. Minimal left frontal subcutaneous contusion and trace subgaleal hematoma. Electronically signed by: Awais Cueva M.D. 07/01/2017 9:01 PM Dictated Date/Time: 07/01/2017 8:59 PM
[2017-07-01] MEDS ORDERED: PHENERGAN 25MG HOMEPACK PO ONE (21:30)
--- NOTE | 2017-07-01 21:48 | EMERGENCY ROOM VISIT NOTE ---
ED Visit Note First contact with patient: 20:34 CHIEF COMPLAINT: Head injury HISTORY OF PRESENT ILLNESS: This 51-year-old female patient presented to the emergency department after receiving a head injury earlier this afternoon. She was evidently walking up steps at home, and had her hands tucked in her jacket pockets. She slipped forward, and was not able to reach to catch herself, striking the front of her head on the stairs. There was questionable loss of consciousness. There has been nausea but no vomiting. The patient complains of headache and nausea. The patient denies vision changes, neck pain, chest pain, numbness, or paresthesias. The headache has been persistent. The patient complains of no neck pain. The patient has taken 400 mg ibuprofen for the pain. The patient rates the pain as 6/10 and dull. The patient denies bowel or bladder dysfunction. The patient denies any other injuries. REVIEW OF SYSTEMS: A review of systems was performed with positives and pertinent negatives listed in the history of present illness. All other systems were reviewed and are negative. ALLERGIES: No known allergies MEDICATIONS: See EMR PMH: See EMR SOCIAL HISTORY: Lives locally PHYSICAL EXAM: Vital Signs: Reviewed Nurse's notes, vital signs stable. GENERAL : White female, in no acute distress, well-developed, well-nourished. NEURO: The patient is alert, oriented to person place and time, and coherent. Normal mini mental status exam. Negative Romberg and pronator drift. Cerebellar function intact. HEAD: Small left-sided hematoma appreciated on the forehead. EYES: Pupils are equal round and reactive to light and accommodation. EOMs are full and optic discs and fundi are normal. There is no swelling or discoloration of the tissue surrounding the eyes. EARS: External auditory canals clear without blood. NOSE: Patent without tenderness. No septal hematoma. FACE: No facial bone tenderness. NECK: Supple. There is no cervical spine tenderness. The patient does not have tenderness with movement of the neck. HEAD WITHOUT CONTRAST (CT) CLINICAL HISTORY: 51 years-old Female presenting with Fall. Head injury. . TECHNIQUE: Multidetector CT imaging of the head was performed without the use of intravenous contrast. IV contrast: None. A dose lowering technique was used consistent with the principles of ALARA (as low as reasonably achievable). COMPARISON: None. CT DOSE (mGy.cm): The estimated cumulative dose is 614.27 mGy.cm. FINDINGS: Controls Designer topogram: Unremarkable. Ventricles and sulci normal in size. Brain parenchyma normal in appearance with preserved link-white differentiation. No mass effect or midline shift. No hemorrhage or acute territorial infarct. No extra-axial fluid collection. Paranasal sinuses and mastoid air cells clear. Calvarium intact. Minimal left frontal subcutaneous swelling, infiltration, and subgaleal hematoma. IMPRESSION: 1. No acute intracranial abnormality. 2. Minimal left frontal subcutaneous contusion and trace subgaleal hematoma. ED COURSE: Physical exam and history were performed. Nursing notes and EMR were reviewed. The patient evidently slipped walking up stairs and struck her head a few hours ago. The patient is nauseated with headache. She is not on blood thinners. She was given Phenergan and Vicodin here in the department. CT scan was performed and reviewed by myself and radiology as showing no intracranial abnormality. She does have a hematoma on CT, which is noted on physical exam. Overall the patient appears well for discharge home. She will be given a home pack of Phenergan for home use. She is otherwise use over-the- counter analgesics. She was invited back to the ER with any new, worsening, or concerning symptoms. Current/Historical Medications Scheduled Cholecalciferol (Vitamin D3), 1,000 UNITS PO QAM Fluoxetine Hcl (Prozac), 40 MG PO QAM Levothyroxine Sodium (Synthroid), 112 MCG PO QAM Linaclotide (Linzess), 290 MCG PO QAM Scheduled PRN Gabapentin (Neurontin), 100 MG PO TID PRN for Pain Lorazepam (Ativan), 0.5-1 TAB PO Q6H PRN for Anxiety Allergies Coded Allergies: No Known Allergies (Unverified , 06/28/17) Vital Signs Date Time Temp Pulse Resp B/P (MAP) Pulse Ox O2 Delivery O2 Flow Rate FiO2 07/01/17 20:30 36.7 73 18 132/76 100 Room Air Medications Administered Medications (Trade) Dose Ordered Sig/Edie Route Start Time Stop Time Status Last Admin Dose Admin Acetaminophen/ Hydrocodone Bitart ([place] 5/325 Tab) 1 tab NOW ONCE PO 07/01/17 20:45 07/01/17 20:46 DC 07/01/17 20:47 1 TAB Promethazine HCl (Phenergan Tab) 25 mg NOW ONCE PO 07/01/17 20:45 07/01/17 20:46 DC 07/01/17 20:47 25 MG Promethazine HCl (Phenergan 25MG Home Pack) 1 homepack UD ONCE PO 07/01/17 21:30 07/01/17 21:31 DC 07/01/17 21:34 1 HOMEPACK Departure Information Impression Primary Impression: Fall Additional Impression: Head injury Dispostion Home / Self-Care Condition GOOD Forms HOME CARE DOCUMENTATION FORM, IMPORTANT VISIT INFORMATION Patient Instructions My [facility] Additional Instructions You were seen and evaluated today on an emergency basis only. This is not a substitute for, or an effort to provide, complete comprehensive medical care. It is not possible to recognize and treat all injuries or illnesses in a single emergency department visit. For this reason it is recommended that you followup with your primary care physician this week for recheck Take Phenergan 25 mg every 6 hours as needed for nausea. For baseline pain relief you may alternate ibuprofen and acetaminophen every 4 hours for pain control. Take 600 mg ibuprofen (Advil) and then 4 hours later take 1000 mg acetaminophen (Tylenol). Do not take more than 3000 mg acetaminophen in a single day. You are welcome to return to the emergency department anytime with new, worsening, or concerning symptoms. Problem Qualifiers
== END 2017-07-01 21:41 | disposition home or self-care (01) ==
LOC: C.EDB 20:22 → C.EDD 21:41
DX: S09.90XA Unspecified injury of head, initial encounter (principal); W19.XXXA Unspecified fall, initial encounter

== ENCOUNTER → 2017-07-05 | Outpatient (CLI) | payer OTHER ==
[~2017-07-05] MED LIST changes: -ONDA4TAB46 PO
== END | disposition home or self-care (01) ==
LOC: C.LABBFT 16:40
PROVIDERS: ATTEND Internal Medicine
DX: N39.0 Urinary tract infection, site not specified (principal)

== ENCOUNTER → 2017-07-20 | Outpatient (CLI) | payer OTHER ==
--- NOTE | 2017-07-20 17:11 | DIAGNOSTIC IMAGING REPORT ---
THORACIC SPINE WITHOUT CLINICAL HISTORY: 51 years-old Female presenting with THORACIC PAIN. TECHNIQUE: Multisequence, multiplanar MR imaging of the thoracic spine was performed without the use of intravenous contrast. IV contrast: None. COMPARISON: 10/04/2016 CTA chest. FINDINGS: Localizer images: Anterior cervical discectomy and fusion of C5-C7. Regional susceptibility artifact. Multilevel degenerative changes in the cervical spine with disc osteophyte complexes at C3-4 and C4-5 as well as C6-7. Slight asymmetric right spinal canal narrowing secondary to bony spurring at these levels. Normal appearance of the cervical spinal cord and craniocervical junction. Normal thoracic kyphosis. Vertebral bodies maintain normal height, alignment, and bone marrow signal intensity. Intervertebral disc spaces preserved. Disc osteophyte complex noted focally at T8-9 with resultant left paracentral effacement of the anterior thecal sac. This mildly contours the spinal cord at this level. Mild left neural foraminal narrowing at this level. Remaining levels demonstrate no evidence of significant spinal canal narrowing or neural foraminal narrowing. Disc bulge noted at L1-2 without significant spinal stenosis. A marker is noted over the posterior thoracic spine at the level of T4-5. No subjacent abnormality at this level. Paraspinal soft tissues within normal limits. IMPRESSION: 1. Focal disc osteophyte complex at T8-9 with contouring of the spinal cord at this level and mild left neural foraminal narrowing. No additional degenerative change in the thoracic spine. 2. Degenerative changes in the cervical and lumbar spine. 3. No focal abnormality subjacent to the marker at the level of T4-5. Electronically signed by: Awais Cueva M.D. 07/20/2017 5:10 PM Dictated Date/Time: 07/20/2017 5:04 PM
== END | disposition home or self-care (01) ==
LOC: C.MRIBC 16:11
PROVIDERS: ATTEND Orthopaedic Surgery
DX: M25.78 Osteophyte, vertebrae (principal); M51.36 Other intervertebral disc degeneration, lumbar region; M50.30 Other cervical disc degeneration, unspecified cervical region

== ENCOUNTER → 2017-08-21 | Outpatient (CLI) | payer OTHER | END | disposition home or self-care (01) | LOC: C.LABBFT 12:22 | PROVIDERS: ATTEND Internal Medicine | DX: E03.9 Hypothyroidism, unspecified (principal); R39.9 Unspecified symptoms and signs involving the genitourinary system ==

== ENCOUNTER → 2017-09-19 | Outpatient (CLI) | payer OTHER | END | disposition home or self-care (01) | LOC: C.LABBFT 14:50 | PROVIDERS: ATTEND Internal Medicine | DX: R39.9 Unspecified symptoms and signs involving the genitourinary system (principal); E03.9 Hypothyroidism, unspecified ==